=== PATIENT | male | born 1960 | race Caucasian/White ===

== ENCOUNTER 2020-12-21 08:49 | Outpatient (REF) | payer OTHER, SELFPAY ==
[2020-12-21 10:48] LABS: Alanine Aminotransferase 23 U/L (0-40); Albumin Level 4.2 g/dL (3.5-5.0); Alkaline Phosphatase 51 U/L (39-117); Anion Gap 12 (12-20); Aspartate Amino Transferase 18 U/L (5-37); Bilirubin Total 1.1 mg/dL (0.0-1.0); Blood Urea Nitrogen 15 mg/dL (9-16); Calcium 8.9 mg/dL (8.4-10.2); Carbon Dioxide 29 mmol/L (22-29); Chloride 102 mmol/L (96-108); Cholesterol 133 mg/dL; Estimated Glomerular Filt Rate > 60; Glucose Fasting 93 mg/dL (60-99); HDL Cholesterol 35 mg/dL; LDL Cholesterol Calculated 78 mg/dl; Potassium 4.6 mmol/L (3.3-5.1); Sodium 138 mmol/L (135-145); Total Protein 6.7 g/dL (6.5-8.0); Triglycerides 100 mg/dL
[2020-12-21 11:11] LABS: Prostate Specific Antigen Scr 1.95 ng/mL (<0.05-4.0); TSH reflex Free T4 0.97 uIU/mL (0.32-4.0)
== END 2020-12-21 08:50 | disposition home or self-care (01) ==
LOC: HO.10HDL 08:49
PROVIDERS: Visit Provider Nurse Practitioner Family
DX: Z00.00 Encounter for general adult medical examination without abnormal findings (principal); Z13.220 Encounter for screening for lipoid disorders; Z13.29 Encounter for screening for other suspected endocrine disorder; Z12.5 Encounter for screening for malignant neoplasm of prostate
CPT/HCPCS: 36415; 80053; 80061; 84153; 84443

== ENCOUNTER 2021-01-16 08:14 | Day surgery (SDC) | payer OTHER, SELFPAY ==
[2021-01-10 10:25] VITALS: BMI 30.2
--- NOTE | 2021-01-11 12:09 | P.CONAN_ITS ---
HPI - Anesthesia Eval Consult details Narrative: 60yo M for Colonoscopy PMFSH Active Problems Active Problems: All Active Problems (Updated 01/10/21 @ 10:26 by Pham Rivera) Physical exam (Acute) Screening PSA (prostate specific antigen) (Acute) Past Medical History Medical History (Updated 01/10/21 @ 10:26 by Pham Rivera) Asthma Elevated cholesterol Hx of degenerative disc disease Psoriasis Retinal hemorrhage of right eye Family History Family History Father Crohn disease Mother No problems noted. Surgical History Surgical History (Updated 01/10/21 @ 10:24 by Pham Rivera) H/O colonoscopy H/O left knee surgery History of esophagogastroduodenoscopy (EGD) History of tonsillectomy and adenoidectomy Social History Social History Advance Directives Information Provided: No Meds Allergies Allergy/AdvReac Type Severity Reaction Status Date / Time No Known Allergies Allergy Verified 12/18/20 13:30 Home Medications Medication Instructions Recorded Confirmed Last Taken Type alclometasone 0.05 % topical cream appl TOPICAL 12/18/20 12/18/20 Unknown History clobetasol 0.05 % topical foam 1 appl TOPICAL BID PRN 12/18/20 01/10/21 Unknown History ketoconazole 2 % shampoo 1 appl TOPICAL 2XW 12/18/20 01/10/21 Unknown History Exam Exam Date and Time: January 11, 2021 1209 Height,Weight and Vital Signs: Height 5 ft 7 in Weight 87.543 kg Assessment and Plan Assessment Anesthesia Assessment: Chart Reviewed
[2021-01-16 08:23] VITALS: BP 157/90; PULSE 85; RESP 16; TEMP 36.4; O2SAT 97
--- NOTE | 2021-01-16 08:28 | MHC.SHP ---
Pre-Procedural Eval Section A The patient is an INPATIENT: No Changes since office visit: No Cold of Flu in the past 2 weeks, No New Medical Problems, No Changes in Medication and No Patient answered all questions The History & Physical has been completed within 30 days and I have reviewed it.: Yes Section B Chief Complaint: screening Allergies: Allergies Allergy/AdvReac Type Severity Reaction Status Date / Time No Known Allergies Allergy Verified 12/18/20 13:30 Plan I have reviewed the history and physical and performed a pertinent physical examination on my patient. No changes have occurred unless specified.
[2021-01-16] MEDS: Lactated Ringers 1,000 ML 100 ML IVCONT (08:35)
[2021-01-16 09:06] VITALS: BP 105/70; PULSE 85; RESP 14; TEMP 36.2; O2SAT 96
--- NOTE | 2021-01-16 09:13 | P.BOP_ITS ---
Brief Operative Note Date of Service: 01/16/21 Pre-op diagnosis: screening Post-op diagnosis: same Procedure: colonoscopy Surgeon: Thanh Garcia Anesthesia: MAC Was an Station Attendant used for this Procedure?: No Estimated blood loss (mL): 0 Pathology: none sent Condition: stable Disposition: PACU
[2021-01-16 09:21] VITALS: BP 113/78; PULSE 74; RESP 17; TEMP 36.2; O2SAT 98
--- NOTE | 2021-01-16 19:09 | OP_ITS ---
SURGEON: Thanh Garcia MD INDICATIONS: Colon cancer screening. PREOPERATIVE DIAGNOSIS: POSTOPERATIVE DIAGNOSIS: PROCEDURE PERFORMED: Colonoscopy to the terminal ileum. ESTIMATED BLOOD LOSS: COMPLICATIONS: ANESTHESIA: ASSISTANTS: SPECIMENS: MEDICATIONS: Monitored anesthesia care. DESCRIPTION OF PROCEDURE: History and physical performed. The risks and benefits of the procedure were explained to the patient. Informed consent was obtained. The patient was placed in the left lateral decubitus position. A digital rectal exam was performed and was found to be normal. The Olympus pediatric video colonoscope was introduced into the rectum and advanced to the cecum without difficulty. The cecum was identified by transillumination, palpation, and identification of ileocecal valve. Examination was performed and the scope was removed. He tolerated the procedure well and was taken to recovery area in stable condition. FINDINGS: The terminal ileum was normal. The visualized colonic mucosa was normal. The quality of the prep was good. No polyps were identified. There was no sign of colitis. There was moderate sigmoid diverticulosis with scattered diverticula throughout the remainder of the colon. Retroflexed examination showed small internal hemorrhoids. IMPRESSION: Normal colonoscopy. RECOMMENDATIONS: 1. Follow up as needed. 2. Repeat colonoscopy is recommended in 10 years for average risk individuals. MD DYLAN Morales/IRLANDA / [phone]
== END 2021-01-16 09:47 | disposition home or self-care (01) ==
PROVIDERS: PCP Nurse Practitioner Family; Visit Provider Internal Medicine Gastroenterology
PROC: 0DJD8ZZ Inspection of Lower Intestinal Tract, Via Natural or Artificial Opening Endoscopic (ICD-10-PCS; CPT 45378; principal; 2021-01-16 08:30)
DX: Z12.11 Encounter for screening for malignant neoplasm of colon (principal); K57.30 Diverticulosis of large intestine without perforation or abscess without bleeding; K64.8 Other hemorrhoids; E78.5 Hyperlipidemia, unspecified; Z79.899 Other long term (current) drug therapy
CPT/HCPCS: 45378

== ENCOUNTER 2021-05-28 13:27 | Outpatient (REF) | payer OTHER, SELFPAY ==
--- NOTE | ~2021-05-28 | XR_ITS ---
EXAMINATION: XR FOOT, LEFT CLINICAL INFORMATION: M67.472 - Ganglion, left ankle and foot COMPARISON: None TECHNIQUE: AP, lateral, and oblique views of the left foot. FINDINGS: There is no acute or healing fracture, dislocation, destructive process. Bony mineralization appears normal. There is no erosive arthropathy. Minor smooth periosteal bone is seen distal shaft and neck second toe proximal phalanx of doubtful significance. There is bulky posterior and smaller plantar calcaneal spurs. No visible soft tissue mass on plain film. XR/XR foot LT min 3V IMPRESSION: 1. No visible fracture or destructive process. 2. No visible soft tissue mass on plain film. 3. Calcaneal spurs.
== END 2021-05-28 13:28 | disposition home or self-care (01) ==
LOC: HO.HMGCX 13:27
PROVIDERS: PCP Nurse Practitioner Family; Visit Provider Physician Assistant Medical
DX: M67.472 Ganglion, left ankle and foot (principal)
CPT/HCPCS: 73630

== ENCOUNTER 2022-01-30 08:46 | Outpatient (REF) | payer OTHER, SELFPAY ==
[2022-01-30 10:23] LABS: MANUAL DIFF FLAG NO
[2022-01-30 10:28] LABS: Basophils Percent Auto 0.5 % (0-2); Eosinophils Absolute Auto 0.1 X10*3/uL (0.0-0.4); Eosinophils Percent Auto 2.6 % (0-4); Hematocrit 44.1 % (42.0-52.0); Hemoglobin 14.6 g/dl (14.0-18.0); Lymphocytes Absolute Auto 1.9 X10*3/uL (1.2-4.9); Mean Corpuscular HGB Conc 33.1 g/dl (31.0-36.0); Mean Corpuscular Hemoglobin 29.4 pg (27.0-33.0); Mean Corpuscular Volume 88.9 fL (80.0-98.0); Mean Platelet Volume 9.1 fL (9.4-12.4); Monocytes Absolute Auto 0.6 X10*3/uL (0.1-1.2); Monocytes Percent Auto 11.4 % (2-11); Neutrophils Absolute Auto 2.8 x10*3/uL (2.0-8.3); Neutrophils Percent Auto 50.5 % (45-73); Platelet Count 321 X10*3/uL (160-400); Red Blood Count 4.96 X10*6/uL (4.60-5.80); Red Cell Distribution Width 12.4 % (11.0-16.0); White Blood Count 5.5 X10*3/uL (4.8-10.8)
[2022-01-30 10:31] LABS: Appearance Urine CLEAR; Color Urine YELLOW; Glucose Urine UA NEG (NEG); Leukocyte Esterase Urine NEG (NEG); Nitrite Urine NEG (NEG); PH 5.5 (5.0-8.0); Specific Gravity - Urine 1.025 (1.005-1.025); Urine Blood NEG (NEG); Urine Ketones NEG (NEG); Urine Protein NEG (NEG-TRACE)
[2022-01-30 10:56] LABS: Alanine Aminotransferase 25 U/L (0-40); Albumin Level 4.2 g/dL (3.5-5.0); Alkaline Phosphatase 52 U/L (39-117); Anion Gap 9 (12-20); Aspartate Amino Transferase 20 U/L (5-37); Bilirubin Total 0.7 mg/dL (0.0-1.0); Blood Urea Nitrogen 20 mg/dL (9-16); Calcium 9.2 mg/dL (8.4-10.2); Carbon Dioxide 26 mmol/L (22-29); Chloride 106 mmol/L (96-108); Cholesterol 131 mg/dL; Estimated Glomerular Filt Rate > 60; Glucose Fasting 94 mg/dL (60-99); HDL Cholesterol 34 mg/dL; LDL Cholesterol Calculated 81 mg/dl; Potassium 4.4 mmol/L (3.3-5.1); Sodium 137 mmol/L (135-145); Total Protein 6.8 g/dL (6.5-8.0); Triglycerides 84 mg/dL
[2022-01-30 11:11] LABS: Prostate Specific Antigen Scr 2.15 ng/mL (<0.05-4.0); TSH reflex Free T4 1.06 uIU/mL (0.32-4.0)
== END 2022-01-30 08:47 | disposition home or self-care (01) ==
LOC: HO.10HDL 08:46
PROVIDERS: Visit Provider Nurse Practitioner Family
DX: Z00.00 Encounter for general adult medical examination without abnormal findings (principal); Z13.220 Encounter for screening for lipoid disorders; Z13.29 Encounter for screening for other suspected endocrine disorder; Z12.5 Encounter for screening for malignant neoplasm of prostate
CPT/HCPCS: 36415; 80053; 80061; 81003; 84153; 84443; 85025

== ENCOUNTER 2023-01-29 07:41 | Outpatient (REF) | payer OTHER, SELFPAY ==
[2023-01-29 10:03] LABS: MANUAL DIFF FLAG NO
[2023-01-29 10:08] LABS: Basophils Percent Auto 0.5 % (0-2); Eosinophils Absolute Auto 0.1 X10*3/uL (0.0-0.4); Eosinophils Percent Auto 1.3 % (0-4); Hematocrit 44.7 % (42.0-52.0); Hemoglobin 15.1 g/dl (14.0-18.0); Imm Gran Abs Auto 0.01 X10*3/uL (0.00-0.03); Imm Gran Pct Auto 0.2 % (0.0-0.4); Lymphocytes Absolute Auto 2.1 X10*3/uL (1.2-4.9); Lymphocytes Percent Auto 34.7 % (20-40); Mean Corpuscular HGB Conc 33.8 g/dl (31.0-36.0); Mean Corpuscular Volume 88.9 fL (80.0-98.0); Mean Platelet Volume 9.2 fL (9.4-12.4); Monocytes Absolute Auto 0.7 X10*3/uL (0.1-1.2); Monocytes Percent Auto 11.7 % (2-11); Neutrophils Absolute Auto 3.1 x10*3/uL (2.0-8.3); Neutrophils Percent Auto 51.6 % (45-73); Platelet Count 307 X10*3/uL (160-400); Red Blood Count 5.03 X10*6/uL (4.60-5.80); Red Cell Distribution Width 12.5 % (11.0-16.0); White Blood Count 6.1 X10*3/uL (4.8-10.8)
[2023-01-29 10:10] LABS: Appearance Urine Clear; Color Urine Yellow; Glucose Urine UA Negative (Negative); Leukocyte Esterase Urine Negative (Negative); Nitrite Urine Negative (Negative); PH 6.5 (5.0-9.0); Specific Gravity - Urine 1.025 (1.005-1.025); Urine Blood Negative (Negative); Urine Ketones Negative (Negative); Urine Protein Negative (Neg-Trace)
[2023-01-29 10:36] LABS: Alanine Aminotransferase 26 U/L (0-40); Albumin Level 4.1 g/dL (3.5-5.0); Alkaline Phosphatase 53 U/L (39-117); Anion Gap 11 (12-20); Aspartate Amino Transferase 24 U/L (5-37); Bilirubin Total 1.3 mg/dL (0.0-1.0); Blood Urea Nitrogen 16 mg/dL (9-16); Calcium 9.2 mg/dL (8.4-10.2); Carbon Dioxide 27 mmol/L (22-29); Chloride 105 mmol/L (96-108); Cholesterol 134 mg/dL; Estimated Glomerular Filt Rate > 60; Glucose Fasting 94 mg/dL (60-99); HDL Cholesterol 35 mg/dL; LDL Cholesterol Calculated 71 mg/dl; Potassium 3.9 mmol/L (3.3-5.1); Sodium 139 mmol/L (135-145); Total Protein 7.1 g/dL (6.5-8.0); Triglycerides 143 mg/dL
[2023-01-29 10:45] LABS: Prostate Specific Antigen Scr 2.33 ng/mL (<0.05-4.0); TSH reflex Free T4 1.73 uIU/mL (0.32-4.0)
== END 2023-01-29 07:42 | disposition home or self-care (01) ==
LOC: HO.10HDL 07:41
PROVIDERS: Visit Provider Nurse Practitioner Family
DX: Z00.00 Encounter for general adult medical examination without abnormal findings (principal); Z20.2 Contact with and (suspected) exposure to infections with a predominantly sexual mode of transmission; Z12.5 Encounter for screening for malignant neoplasm of prostate; Z13.220 Encounter for screening for lipoid disorders; Z13.29 Encounter for screening for other suspected endocrine disorder
CPT/HCPCS: 36415; 80053; 80061; 81003; 84153; 84443; 85025

== ENCOUNTER → 2023-02-17 08:51 | Outpatient (BNVA) | payer OTHER, SELFPAY | PROVIDERS: Visit Provider Urology | DX: N40.1 Benign prostatic hyperplasia with lower urinary tract symptoms (principal); N13.8 Other obstructive and reflux uropathy; N39.43 Post-void dribbling | CPT/HCPCS: 51798 ==

== ENCOUNTER 2023-02-25 09:56 | Outpatient (REF) | payer OTHER, SELFPAY ==
--- NOTE | ~2023-02-25 | US_ITS ---
EXAMINATION: US RETROPERITONEAL COMPLETE (RENAL) CLINICAL INFORMATION: Postvoid dribbling. Please measure prostate. COMPARISON: None available. TECHNIQUE: Real-time imaging of the kidneys and bladder. FINDINGS: RIGHT KIDNEY: 10.9 x 5.4 x 5.3 cm (SAG x AP x TRV). The kidney is normal in size, contour, and echogenicity. Renal cortical thickness is normal. No calculi or focal parenchymal lesions. No hydronephrosis. LEFT KIDNEY: 10.3 x 5.1 x 5.3 cm (SAG x AP x TRV). The kidney is normal in size, contour, and echogenicity. Renal cortical thickness is normal. No focal parenchymal lesions or hydronephrosis. 5 mm nonobstructing lower pole renal stone. BLADDER: Well distended and normal. Bilateral ureteral jets are demonstrated. Prevoid bladder volume is 170 mL. Postvoid bladder volume is 2.76 mL. The prostate volume is 21.3 mL. US/US retroperitoneal comp IMPRESSION: 1. A 5 mm nonobstructing left lower pole renal stone. No hydronephrosis. 2. Prostate volume is 21.3 mL which is within normal limits.
== END 2023-02-25 09:57 | disposition home or self-care (01) ==
LOC: HO.HMGCX 09:56
PROVIDERS: PCP Nurse Practitioner Family; Visit Provider Urology
DX: N40.1 Benign prostatic hyperplasia with lower urinary tract symptoms (principal); N39.43 Post-void dribbling
CPT/HCPCS: 76770

== ENCOUNTER 2023-05-29 10:50 | Outpatient (AMB) | payer OTHER, SELFPAY ==
--- NOTE | 2023-05-29 10:53 | MHC.OFFWIV ---
Intake Vital Signs 05/29/23 10:55 Height 5 ft 7 in Weight 197 lb BMI 30.9 BP 132/76 Blood Pressure Location Rt brachial Position Sitting Pulse 96 Pulse Source Pulse Oximeter Temp 95.8 F L Temp Source Temporal Artery Scan Pulse Oximetry (%) 97 Oxygen Delivery Method Room Air Intake Visit Reasons: EP ?Bronchitis Intake Note: Pt is here c/o possible bronchitis. Pt states he has had a bad cough, back pain and light headedness for the past month. Pt states he has used his inhaler more than normal. Pt states his granddaughter had bronchitis. Patient Tobacco Use Status: Never used Tobacco Allergies No Known Allergies Allergy (Verified 05/29/23 10:55) HPI HPI Comments History of Present Illness Details 63-year-old male history of bronchitis precludes for concern of bronchitis. Patient was sick about a month ago with viral-like illness. Was not seen or evaluated. Within the been experiencing cough and chest congestion. Cough is nonproductive denies fever chills. [facility] Medical History Asthma Elevated cholesterol Hx of degenerative disc disease Psoriasis Retinal hemorrhage of right eye Surgical History H/O colonoscopy H/O left knee surgery History of esophagogastroduodenoscopy (EGD) History of tonsillectomy and adenoidectomy Family History Father Crohn disease Mother No problems noted. Social History Housing: House Patient Tobacco Use Status: Never used Tobacco e-Cigarette/Vaping Use: Never Used service: No Current occupational status: retired Cognitive needs: No Hearing needs: No Vision needs: Yes Review of Systems Const All systems reviewed & are unremarkable except as noted in HPI and below Resp Reports cough Physical Exam Vital Signs: Last Vital Signs Temp 95.8 F L 05/29/23 10:55 Pulse 96 05/29/23 10:55 BP 132/76 05/29/23 10:55 Pulse Ox 97 05/29/23 10:55 Oxygen Delivery Method Room Air 05/29/23 10:55 BMI result Body Mass Index 30.9 Const General: healthy appearing, comfortable, no acute distress and alert Orientation/consciousness: patient oriented x3 Limitations: no limitations HEENT Head: Yes normal to inspection Ears: hearing grossly normal bilaterally Resp Other: Rhonchi heard in the upper right lobe Effort & Inspection: normal respiratory effort and able to speak in complete sentences Cardio Rate: regular rate Skin General skin exam: no rashes or lesions noted Neuro General: patient oriented x3 Extrem General: Yes normal to inspection Assessment & Plan Assessment & Plan (1) Cough: Code(s): R05.9 - Cough, unspecified Plan VSS. On exam patients presents A& O in no acute distress. Exam notable for rhonchi in the upper R lobe. Will order CXR. Bronchitis vs PNA. CXR neg likely bronchitis Discharge instructions, follow up and treatment are discussed with patient in my usual fashion. Alternatives in treatment are also discussed. The patient will return for worsening symptoms or as needed. Advised that any labs/imaging ordered will be followed up on and contact made if further treatment needed. Counseled that patient's condition may require further evaluation and/or treatment. Symptoms of concern for worsening disorder discussed in detail in my customary manner. Patient does verbalize understanding of the plan, there are no apparent barriers to communication. The patient is given the opportunity to ask questions and have them answered to his/her satisfaction Orders: Orders XR chest 2V Today R05.9 - Cough, unspecified Medications: New benzonatate 100 mg PO BID-TID PRN 10 caps 0RF cough prednisone 40 mg (2 x 20 mg) PO DAILY 10 tabs 0RF 5 days Coding Level of Care Code Est Pt Level 4 (13856) Diagnoses Cough R05.9
[2023-05-29 10:55] VITALS: BP 132/76; PULSE 96; TEMP 35.4; O2SAT 97; BMI 30.9
== END 2023-05-29 11:29 | disposition home or self-care (01) ==
PROVIDERS: PCP Nurse Practitioner Family; Visit Provider Physician Assistant
DX: R05.9 Cough, unspecified (principal)
CPT/HCPCS: 99214

== ENCOUNTER 2023-05-29 11:15 | Outpatient (REF) | payer OTHER, SELFPAY ==
--- NOTE | ~2023-05-29 | XR_ITS ---
EXAMINATION: XR CHEST CLINICAL INFORMATION: Cough COMPARISON: Chest x-ray on 12/13/2016 TECHNIQUE: 2 views of the chest were obtained. FINDINGS: vascularity. LUNGS: Lungs are clear. No pneumothorax is seen. BONES: Bony skeleton is intact. XR/XR chest 2V IMPRESSION: Unchanged Normal chest x-ray. Please note that chest x-ray has limited sensitivity for groundglass infiltrates.
== END 2023-05-29 11:16 | disposition home or self-care (01) ==
LOC: HO.HMGCX 11:15
PROVIDERS: PCP Nurse Practitioner Family; Visit Provider Physician Assistant
DX: R05.9 Cough, unspecified (principal)
CPT/HCPCS: 71046

== ENCOUNTER 2023-07-02 15:20 | Outpatient (AMB) | payer OTHER, SELFPAY ==
--- NOTE | 2023-07-02 15:25 | A.OFFVIS_ITS ---
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 07/02/2023-- LV 02/17/23-- He was prescribed alfuzosin. Wan is a 63-year-old male who is being followed for LUTS of dribbling and BPH. He states that he did not take alfusozin as he developed jaw pain and felt drowsy for couple of days. He uses generic Viagra 100 mg PRN. He has had renal US done which was reviewed with patient today noting a 5 mm stone on the left kidney. He states he would prefer not to take BPH medications at this time, as he feels he is emptying his bladder adequately. I have reviewed the US results from 02/25/2023 revealed. 5 mm in the lower pole of the left kidney. Review of chart: PSA results reviewed? 12/21/20-- 1.95, 01/30/22-- 2.15 01/29/23?2.33 07/02/23--Plan:CAT scan protocol was ord ered. AMARILIS in december 2023. [facility] Medical History Psoriasis Hx of degenerative disc disease Elevated cholesterol Asthma Retinal hemorrhage of right eye Surgical History History of tonsillectomy and adenoidectomy History of esophagogastroduodenoscopy (EGD) H/O colonoscopy H/O left knee surgery Family History Father Crohn disease Mother No problems noted. Social History Housing: House Patient Tobacco Use Status: Never used Tobacco e-Cigarette/Vaping Use: Never Used service: No Current occupational status: retired Cognitive needs: No Hearing needs: No Vision needs: Yes Review of Systems Const All systems reviewed & are unremarkable except as noted in HPI and below Reports no additional complaints Eyes Reports no additional complaints ENT Denies neck pain Card Denies leg edema Resp Denies cough GI Denies constipation Musc Reports no additional complaints and Denies neck pain Skin/Breast Denies rash and Denies unusual bruising Neuro Reports no additional complaints Psych Reports no additional complaints Endo Reports no additional complaints Neo/Lymph Reports no additional complaints Aller/Immun Reports no additional complaints Results AMB Urinalysis, Automated UA Leukoctes 0 Hayley/uL Last Edit by Shirley Georges Ritesh on 07/02/23 16:12 UA Nitrite Negative Last Edit by Shirley Georges [facility] on 07/02/23 16:12 UA Urobilinogen 0.2 mg/dL Last Edit by Shirley Georges [facility] on 07/02/23 16:1 2 UA Protein 0 mg/dL Last Edit by Shirley Georges [facility] on 07/02/23 16:12 UA pH 5.5 Last Edit by Shirley Georges [facility] on 07/02/23 16:12 UA Blood 0 Gen/uL Last Edit by Shirley Georges [facility] on 07/02/23 16:12 UA Specific [place] 1.030 Last Edit by Shirley Georges [facility] on 07/02/23 16: 12 UA Ketone Negative Last Edit by Shirley Georges Ritesh on 07/02/23 16:12 UA Bilirubin 0 mg/dL Last Edit by Shirley Georges [facility] on 07/02/23 16:12 UA Glucose 0 mg/dL Last Edit by Shirley Georges [facility] on 07/02/23 16:12 Results Reviewed Results Reviewed: Laboratory Last Values Urine pH (Auto) 5.5 07/02/23 16:07 Specific [place] (Auto) 1.030 07/02/23 16:07 Urine Protein (Auto) 0 mg/dL 07/02/23 16:07 Glucose (UA)(Auto) 0 mg/dL 07/02/23 16:07 Urine Ketones (Auto) Negative 07/02/23 16:07 Urine Blood (Auto) 0 Gen/uL 07/02/23 16:07 Urine Nitrite (Auto) Negative 07/02/23 16:07 Urine Bilirubin (Auto) 0 mg/dL 07/02/23 16:07 Urine Urobilinogen (Auto) 0.2 mg/dL 07/02/23 16:07 Leukocyte Esterase (Auto) 0 Hayley/uL 07/02/23 16:07 Date of Service: 02/25/23 EXAMINATION: US RETROPERITONEAL COMPLETE (RENAL) CLINICAL INFORMATION: Postvoid dribbling. Please measure prostate. COMPARISON: None available. FINDINGS: RIGHT KIDNEY: 10.9 x 5.4 x 5.3 cm (SAG x AP x TRV). The kidney is normal in size, contour, and echogenicity. Renal cortical thickness is normal. No calculi or focal parenchymal lesions. No hydronephrosis. LEFT KIDNEY: 10.3 x 5.1 x 5.3 cm (SAG x AP x TRV). The kidney is normal in size, contour, and echogenicity. Renal cortical thickness is normal. No focal parenchymal lesions or hydronephrosis. 5 mm nonobstructing lower pole renal stone. Assessment & Plan Assessment & Plan (1) BPH loc w urin obs/LUTS: Code(s): N40.1 - Benign prostatic hyperplasia with lower urinary tract symptoms (2) Post-void dribbling: Code(s): N39.43 - Post-void dribbling (3) Kidney stone: Code(s): N20.0 - Calculus of kidney (4) Erectile dysfunction: Code(s): N52.9 - Male erectile dysfunction, unspecified Plan CAT scan protocol was ordered. FU in december 2023. Orders: Orders AMB Urinalysis Automated 07/02/23 Z13.9 - Encounter for screening, unspecified Patient Instructions: The patient had an opportunity to ask questions regarding treatment plan. All questions were answered. Imaging, Laboratory studies and physical exam results were discussed and reviewed in detail. No major barriers to understanding were identified. The patient expressed understanding and agreement with the above treatment plan. The patient is aware they should contact our office by phone for worsening of their current condition or the appearance of new symptoms. Compliance is encouraged with any medications and followup testing that is ordered. It is a privilege to be allowed the opportunity to participate in the urologic care of your patient. If you have any questions or concerns regarding treatment for the above conditions please do not hesitate to contact me. The office telephone contact is [phone]. This note is constructed in part using voice recognition software. While every effort has been made to ensure accuracy shader and toner errors may have been included. Yours sincerely, Zulema Oliva MD Coding Level of Care Code Est Pt Level 4 (11602) Diagnoses BPH loc w urin obs/LUTS N40.1 Post-void dribbling N39.43 Kidney stone N20.0 Erectile dysfunction N52.9
== END 2023-07-02 16:15 | disposition home or self-care (01) ==
PROVIDERS: PCP Nurse Practitioner Family; Visit Provider Urology
DX: N40.1 Benign prostatic hyperplasia with lower urinary tract symptoms (principal); N39.43 Post-void dribbling; N20.0 Calculus of kidney; N52.9 Male erectile dysfunction, unspecified
CPT/HCPCS: 99214

== ENCOUNTER → 2023-07-02 15:20 | Outpatient (BNVA) | payer OTHER, SELFPAY | PROVIDERS: PCP Nurse Practitioner Family; Visit Provider Urology | DX: N40.1 Benign prostatic hyperplasia with lower urinary tract symptoms (principal); N13.8 Other obstructive and reflux uropathy; N39.43 Post-void dribbling; N20.0 Calculus of kidney | CPT/HCPCS: 81003 ==

== ENCOUNTER 2024-01-15 07:26 | Outpatient (AMB) | payer OTHER, SELFPAY ==
[2024-01-15 07:36] VITALS: BP 140/80; PULSE 58; O2SAT 98; BMI 30.2
--- NOTE | 2024-01-15 07:36 | A.OFFPC_ITS ---
Vital Signs 01/15/24 07:36 01/15/24 08:02 Height 5 ft 7 in Weight 193 lb BMI 30.2 BP 140/80 H 138/80 Blood Pressure Location Rt brachial Rt brachial Position Sitting Sitting Pulse 58 Pulse Source Pulse Oximeter Pulse Oximetry (%) 98 Oxygen Delivery Method Room Air Intake Visit Reasons: Annual PE Intake Note: Pt is here today for his PE Allergies No Known Allergies Allergy (Verified 01/15/24 07:42) Medication List - Last Reconciled 01/15/24 by GIOVANNA Cornelius albuterol sulfate 90 mcg/actuation (Ventolin HFA) 1 inh inhalation QID PRN 30 days alclometasone 0.05% appl topical atorvastatin 10 mg PO BEDTIME ibuprofen 600 mg PO TID PRN ketoconazole 2% 1 appl topical 2XW sildenafil 100 mg PO DAILY PRN 30 days Tobacco use date assessed: 01/15/24 Dental Screening Dental Screen Date: 01/15/24 Did you have a dental visit in the last 12 months?: Yes Did you have a dental problem in the last 6 months where you did not have access to dental care?: No Was dental information given to patient?: Patient has dentist HPI Annual PE HPI Details Pt is here for a PE. Will order labs. Colon screen is up to date. Due for PSA in the near future, will order. Denies dribbling with urination, weak stream, and frequent nocturia. Pt is following up with urology and dermatology. Pt has had bronchitis 3 times in the last year. He denies any current symptoms. [facility] Medical History (Updated 01/15/24 @ 07:49 by GIOVANNA Cornelius) Family history of Crohn's disease Psoriasis Hx of degenerative disc disease Elevated cholesterol Asthma Retinal hemorrhage of right eye Surgical History History of tonsillectomy and adenoidectomy History of esophagogastroduodenoscopy (EGD) H/O colonoscopy H/O left knee surgery Family History Father Crohn disease Mother No problems noted. Social History Housing: House Patient Tobacco Use Status: Never used Tobacco e-Cigarette/Vaping Use: Never Used service: No Current occupational status: retired Cognitive needs: No Hearing needs: No Vision needs: Yes Questionnaire PHQ-9 Over the last 2 weeks, how often have you been bothered by any of the following problems? 1. Little interest or pleasure in doing things: not at all 2. Feeling down, depressed, or hopeless: not at all 3. Trouble falling or staying asleep, or sleeping too much: not at all 4. Feeling tired or having little energy: not at all 5. Poor appetite or overeating: not at all 6. Feeling bad about yourself - or that you are a failure or have let yourself or your family down: not at all 7. Trouble concentrating on things, such as reading the newspaper or watching television: not at all 8. Moving or speaking so slowly that other people could have noticed. Or the opposite - being so fidgety or restless that you have been moving around a lot more than usual: not at all 9. Thoughts that you would be better off or of hurting yourself in some way: not at all Total score: 0 Depression Screening Interpretation: Negative Depression Screening Done: Yes 54682 - PHQ-9 Billing: Yes Source: Developed by Drs. Jaden Beverly, Latha Fisher, Yuo Babin and colleagues, with an educational ganga from [employer]. Thrive Questionnaire Date Thrive assessed: 01/15/24 I am a: Patient What is your living situation today?: I have a steady place to live Within the past 12 months, did the food you bought not last and you didn't have the money to get more?: Never true Within the past 12 months, did you worry whether your food would run out before you got money to buy more?: Never true Do you have trouble paying for medicines?: No Do you have trouble getting transportation to medical appointments?: No Do you have trouble paying your heating and electricity bill?: No Do you have trouble taking care of your child, family member or friend?: No Do you have trouble with day-to-day activities such as bathing, preparing meals, shopping, managing finances, etc.?: No Are you currently unemployed and looking for a job?: No Are you interested in more education?: No THRIVE Score: 0 AUDIT C Alcohol Use Questionnaire (AUDIT-C) 1. How often do you have a drink containing alcohol?: Monthly or less 2. How many drinks containing alcohol do you have on a typical day when you are drinking?: 1 or 2 3. How often do you have six or more drinks on one occasion?: Never Total Score: 1 JESSIE-7 AMB Questionnaire JESSIE-7 Date JESSIE - 7 assessed: 01/15/24 Feeling nervous, anxious, or on edge: 0 = Not at all Not being able to stop or control worryin = Not at all Worrying too much about different things: 0 = Not at all Trouble relaxin = Not at all Being so restless that it is hard to sit still: 0 = Not at all Becoming easily annoyed or irritable: 0 = Not at all Feeling afraid as if something awful might happen: 0 = Not at all Total JESSIE-7 score (0-4 normal; 5-9 mild; 10-14 moderate; 15-21 severe): 0 Source: Developed by Drs. Jaden Beverly, Latha Fisher, You Babin and colleagues, with an educational ganga from [employer]. JESSIE-7 Assessment Billing JESSIE-7 Assessment Tool: JESSIE-7 Assessment 47987 Review of Systems Const Denies chills and Denies fever(s) Eyes Denies blurry vision ENT Denies vertigo, Denies dizziness and Denies sore throat Card Denies chest pain at rest, Denies chest pain with activity, Denies diaphoresis, Denies dyspnea and Denies dyspnea on exertion Resp Denies cough, Denies dyspnea, Denies dyspnea on exertion and Denies wheezing GI Denies abdominal pain, Denies melena, Denies hematochezia, Denies constipation, Denies diarrhea and Denies loose stools Denies hematuria Musc Denies numbness and Denies tingling Skin/Breast Denies lesions Neuro Denies vertigo, Denies dizziness, Denies numbness and Denies tingling Psych Denies anxiety, Denies depression, Denies homicidal ideation, Denies suicidal ideation and Denies other (substance abuse) Aller/Immun Denies wheezing Physical exam (Primary Care) Vital Signs: Last Vital Signs Pulse 58 01/15/24 07:36 BP 140/80 H 01/15/24 07:36 Pulse Ox 98 01/15/24 07:36 Oxygen Delivery Method Room Air 01/15/24 07:36 BMI result Body Mass Index 30.2 Tobacco/Smoking Status: Tobacco use Status Tobacco use date assessed 01/15/24 01/15/24 07:41 Patient Tobacco Use Status Never used Tobacco 01/15/24 07:36 e-Cigarette/Vaping Use Never Used 01/15/24 07:36 PHQ-9: PHQ-9 Score PHQ-9: Total score 0 01/15/24 07:43 Depression Screening Interpretation: Negative Thrive Assessment: Date of Thrive Assessment Date Thrive assessed 01/15/24 01/15/24 07:43 Const General: cooperative Nutritional Appearance: well nourished Orientation/consciousness: patient oriented x3 HENMT Head: Yes normal to inspection, Yes normocephalic and Yes atraumatic Ears: TM's normal bilaterally Eyes General: appearance normal, both eyes and all related structures Alignment and Position: alignment normal and position normal Neck Neck: Yes normal visual inspection and Yes no lymphadenopathy Thyroid: Thyroid normal Resp Effort & Inspection: normal respiratory effort Auscultation: clear to auscultation bilaterally Cardio Rate: regular rate Rhythm: regular rhythm Heart sounds: S1 normal heart sound present, S2 normal heart sound present and no murmurs GI Palpation (GI): Soft to palpation and nontender Auscultation: normal bowel sounds Male General Exam: Yes normal external exam Penis: normal penis Scrotum: scrotum normal, testes descended bilaterally and no inguinal hernias Testes: no testicular mass Skin Rashes: no rashes Neuro General: patient oriented x3, moves all extremities, no focal motor deficits and deep tendon reflexes 2+ bilaterally Romberg Test: Negative Psych Appearance: grossly normal Mental Status: mental status grossly normal Speech and movement: Normal speech and movement present Affect: normal affect Attitude: cooperative Thought process: Normal thought process present Thought content: Normal thought content present Insight: Good insight present (Psych) Judgement: Good judgement present (Psych) Assessment and Plan Assessment & Plan (1) Screening PSA (prostate specific antigen): Code(s): Z12.5 - Encounter for screening for malignant neoplasm of prostate Plan: PSA ordered (2) Encounter for routine adult physical exam with abnormal findings: Code(s): Z00.01 - Encounter for general adult medical examination with abnormal findings Plan: Labs ordered Plan The patient agreed to the use of a medical physiologist for this encounter. Scribed for GIOVANNA Larose by Joann Sellers medical physiologist, on 01/15/2024 at 07:40 EST. Orders: Orders Complete Blood Count Auto Diff Today Z00.00 - Encounter for general adult medical examination without abnormal findings UA CC w/rflx Micro + Cult Today Z00.00 - Encounter for general adult medical examination without abnormal findings Comprehensive [place]. Panel Fast Today Z00.00 - Encounter for general adult medical examination without abnormal findings TSH reflex Free T4 Today Z00.00 - Encounter for general adult medical examination without abnormal findings Lipid Panel Today Z00.00 - Encounter for general adult medical examination without abnormal findings Prostate Specific Antigen Scr Today Z12.5 - Encounter for screening for malignant neoplasm of prostate Coding Level of Care Code Est Pt Prev Care 40-64y(35101) Diagnoses Screening PSA (prostate specific antigen) Z12.5 Encounter for routine adult physical exam with abnormal findings Z00.01 Additional Codes JESSIE-7 Assessment Billing - JESSIE-7 Assessment Tool: JESSIE-7 Assessment [id number] ([id number])
[2024-01-15 08:02] VITALS: BP 138/80
== END 2024-01-15 08:08 | disposition home or self-care (01) ==
PROVIDERS: Visit Provider Nurse Practitioner Family
DX: Z00.00 Encounter for general adult medical examination without abnormal findings (principal); Z12.5 Encounter for screening for malignant neoplasm of prostate
CPT/HCPCS: 99396

== ENCOUNTER 2024-01-15 08:05 | Outpatient (REF) | payer OTHER, SELFPAY ==
[2024-01-15 10:24] LABS: MANUAL DIFF FLAG NO
[2024-01-15 10:34] LABS: Appearance Urine Clear; Color Urine Yellow; Glucose Urine UA Negative (Negative); Leukocyte Esterase Urine Negative (Negative); Nitrite Urine Negative (Negative); PH 5.5 (5.0-9.0); Urine Blood Negative (Negative); Urine Ketones Negative (Negative); Urine Protein Negative (Neg-Trace)
[2024-01-15 10:39] LABS: Basophils Percent Auto 0.7 % (0-2); Eosinophils Absolute Auto 0.3 X10*3/uL (0.0-0.4); Eosinophils Percent Auto 5.5 % (0-4); Hematocrit 44.5 % (42.0-52.0); Hemoglobin 14.6 g/dl (14.0-18.0); Imm Gran Abs Auto 0.01 X10*3/uL (0.00-0.03); Imm Gran Pct Auto 0.2 % (0.0-0.4); Lymphocytes Absolute Auto 1.6 X10*3/uL (1.2-4.9); Lymphocytes Percent Auto 28.9 % (20-40); Mean Corpuscular HGB Conc 32.8 g/dl (31.0-36.0); Mean Corpuscular Volume 91.4 fL (80.0-98.0); Mean Platelet Volume 9.1 fL (9.4-12.4); Monocytes Absolute Auto 0.7 X10*3/uL (0.1-1.2); Monocytes Percent Auto 12.5 % (2-11); Neutrophils Absolute Auto 2.9 x10*3/uL (2.0-8.3); Neutrophils Percent Auto 52.2 % (45-73); Platelet Count 330 X10*3/uL (160-400); Red Blood Count 4.87 X10*6/uL (4.60-5.80); Red Cell Distribution Width 12.8 % (11.0-16.0); White Blood Count 5.6 X10*3/uL (4.8-10.8)
[2024-01-15 11:04] LABS: Alanine Aminotransferase 27 U/L (0-40); Albumin Level 4.1 g/dL (3.5-5.0); Alkaline Phosphatase 54 U/L (39-117); Anion Gap 12 (12-20); Aspartate Amino Transferase 21 U/L (5-37); Bilirubin Total 0.4 mg/dL (0.0-1.0); Blood Urea Nitrogen 15 mg/dL (9-16); Calcium 8.8 mg/dL (8.4-10.2); Carbon Dioxide 27 mmol/L (22-29); Chloride 107 mmol/L (96-108); Cholesterol 136 mg/dL (<200); Estimated Glomerular Filt Rate > 60; Glucose Fasting 97 mg/dL (60-99); HDL Cholesterol 37 mg/dL (>40); LDL Cholesterol Calculated 73 mg/dL (<100); Potassium 4.6 mmol/L (3.3-5.1); Sodium 141 mmol/L (135-145); Triglycerides 133 mg/dL (<150)
[2024-01-15 11:08] LABS: TSH reflex Free T4 1.05 uIU/mL (0.32-4.0)
[2024-01-15 11:12] LABS: Prostate Specific Antigen Scr 4.55 ng/mL (<0.05-4.0)
== END 2024-01-15 08:06 | disposition home or self-care (01) ==
LOC: HO.HMGCLDS 08:05
PROVIDERS: PCP Nurse Practitioner Family; Visit Provider Nurse Practitioner Family
DX: Z00.00 Encounter for general adult medical examination without abnormal findings (principal); Z12.5 Encounter for screening for malignant neoplasm of prostate
CPT/HCPCS: 36415; 80053; 80061; 81003; 84153; 84443; 85025

== ENCOUNTER 2024-03-01 08:17 | Outpatient (AMB) | payer BC, SELFPAY ==
--- NOTE | 2024-03-01 08:25 | MHC.OFFVIS ---
Intake Visit Reasons: 6m/PSA Intake Note: Patient is Present for PVR/PSA Urology Med: Sildenafil(PCP Prescribes) Antibiotic Allergy: None Blood Thinner: None Diabetic: No No diabetic Medications Todays PVR: 0 Allergies No Known Allergies Allergy (Verified 03/01/24 08:27) Medication List - Last Reconciled 03/01/24 by Zulema Oliva MD albuterol sulfate 90 mcg/actuation (Ventolin HFA) 1 inh inhalation QID PRN 30 days alclometasone 0.05% appl topical atorvastatin 10 mg PO BEDTIME ibuprofen 600 mg PO TID PRN ketoconazole 2% 1 appl topical 2XW sildenafil 100 mg PO DAILY PRN 30 days HPI Comments Details: 03/01/24--Wan is a 64-year-old male who presents today to the office for a follow-up. He is being followed due to BPH and changes in urinary stream he has currently not on alpha-berna. He had PSA done which came back 4.55. The patient also was noted to have a 5 mm kidney stone on prior renal ultrasound imaging. I have discussed that elevated PSA may indicate changes in the prostate including benign enlargement, cancer and an inflammatory condition. I have discussed doing a biopsy has risks and that management in early detection of prostate cancer may include active surveillance. Will get a CT abdomen pelvis without IV contrast to follow-up on nephrolithiasis. Review of chart: 07/02/2023-- LV 02/17/23-- He was prescribed alfuzosin. Wan is a 63-year-old male who is being followed for LUTS of dribbling and BPH. He states that he did not take alfusozin as he developed jaw pain and felt drowsy for couple of days. He uses generic Viagra 100 mg PRN. He has had renal US done which was reviewed with patient today noting a 5 mm stone on the left kidney. He states he would prefer not to take BPH medications at this time, as he feels he is emptying his bladder adequately. I have reviewed the US results from 02/25/2023 revealed. 5 mm in the lower pole of the left kidney. PSA results reviewed? 12/21/20-- 1.95, 01/30/22-- 2.15 01/29/23?2.33 [facility] Medical History Family history of Crohn's disease Psoriasis Hx of degenerative disc disease Elevated cholesterol Asthma Retinal hemorrhage of right eye Surgical History History of tonsillectomy and adenoidectomy History of esophagogastroduodenoscopy (EGD) H/O colonoscopy H/O left knee surgery Family History Father Crohn disease Mother No problems noted. Social History Housing: House Patient Tobacco Use Status: Never used Tobacco e-Cigarette/Vaping Use: Never Used service: No Current occupational status: retired Cognitive needs: No Hearing needs: No Vision needs: Yes Review of Systems Const All systems reviewed & are unremarkable except as noted in HPI and below Reports no additional complaints Eyes Reports no additional complaints ENT Reports no additional complaints Card Reports no additional complaints Resp Reports no additional complaints GI Reports no additional complaints Reports as per HPI Musc Reports no additional complaints Skin/Breast Reports system reviewed and no additional complaints, except as documented Neuro Reports no additional complaints Psych Reports no additional complaints Endo Reports no additional complaints Neo/Lymph Reports no additional complaints Aller/Immun Reports no additional complaints Office Procedures Post Void Residual Post Residual Void Post Void Residual (PVR): [id number] Void Residual by ultrasound Results AMB Urinalysis, Automated UA Leukoctes 0 Hayley/uL Last Edit by JACOBO Reddy on 03/01/24 08:43 UA Nitrite Negative Last Edit by JACOBO Reddy on 03/01/24 08:43 UA Urobilinogen 0.2 mg/dL Last Edit by JACOBO Reddy on 03/01/24 08:43 UA Protein 0 mg/dL Last Edit by JACOBO Reddy on 03/01/24 08:43 UA pH 6.0 Last Edit by JACOBO Reddy on 03/01/24 08:43 UA Blood 0 Gen/uL Last Edit by JACOBO Reddy on 03/01/24 08:43 UA Specific [place] 1.015 Last Edit by JACOBO Reddy on 03/01/24 08:43 UA Ketone Negative Last Edit by JACOBO Reddy on 03/01/24 08:43 UA Bilirubin 0 mg/dL Last Edit by JACOBO Reddy on 03/01/24 08:43 UA Glucose 0 mg/dL Last Edit by JACOBO Reddy on 03/01/24 08:43 Results Reviewed Results Reviewed: Laboratory Last Values Urine pH (Auto) 6.0 03/01/24 08:30 Specific [place] (Auto) 1.015 03/01/24 08:30 Urine Protein (Auto) 0 mg/dL 03/01/24 08:30 Glucose (UA)(Auto) 0 mg/dL 03/01/24 08:30 Urine Ketones (Auto) Negative 03/01/24 08:30 Urine Blood (Auto) 0 Gen/uL 03/01/24 08:30 Urine Nitrite (Auto) Negative 03/01/24 08:30 Urine Bilirubin (Auto) 0 mg/dL 03/01/24 08:30 Urine Urobilinogen (Auto) 0.2 mg/dL 03/01/24 08:30 Leukocyte Esterase (Auto) 0 Hayley/uL 03/01/24 08:30 Date of Service: 02/25/23 EXAMINATION: US RETROPERITONEAL COMPLETE (RENAL) CLINICAL INFORMATION: Postvoid dribbling. Please measure prostate. COMPARISON: None available. FINDINGS: RIGHT KIDNEY: 10.9 x 5.4 x 5.3 cm (SAG x AP x TRV). The kidney is normal in size, contour, and echogenicity. Renal cortical thickness is normal. No calculi or focal parenchymal lesions. No hydronephrosis. LEFT KIDNEY: 10.3 x 5.1 x 5.3 cm (SAG x AP x TRV). The kidney is normal in size, contour, and echogenicity. Renal cortical thickness is normal. No focal parenchymal lesions or hydronephrosis. 5 mm nonobstructing lower pole renal stone. Assessment & Plan Assessment & Plan (1) BPH loc w urin obs/LUTS: Code(s): N40.1 - Benign prostatic hyperplasia with lower urinary tract symptoms Category: Medical (2) Post-void dribbling: Code(s): N39.43 - Post-void dribbling Category: Medical (3) Kidney stone: Code(s): N20.0 - Calculus of kidney Category: Medical (4) Erectile dysfunction: Code(s): N52.9 - Male erectile dysfunction, unspecified Category: Medical (5) Elevated PSA: Code(s): R97.20 - Elevated prostate specific antigen [PSA] Category: Medical Plan CAT scan stone protocol was ordered. Repeat PSA Orders: Orders AMB Post Void Residual by ultrasound Today N40.1 - Benign prostatic hyperplasia with lower urinary tract symptoms PSA,Total (Free>4and<10) Today R97.20 - Elevated prostate specific antigen [PSA] CT abdomen pelvis wo IV con Today N20.0 - Calculus of kidney AMB Urinalysis Automated Today Z13.9 - Encounter for screening, unspecified Patient Instructions: The patient had an opportunity to ask questions regarding treatment plan. The patient expressed understanding and agreement with the above treatment plan. The patient is aware they should contact our office by phone for worsening of their current condition or the appearance of new symptoms. Compliance is encouraged with any medications and followup testing that is ordered. It is a privilege to be allowed the opportunity to participate in the urologic care of your patient. If you have any questions or concerns regarding treatment for the above conditions please do not hesitate to contact me. The office telephone contact is [phone]. This note is constructed in part using voice recognition software. While every effort has been made to ensure accuracy recreation therapist errors may have been included. Yours sincerely, Zulema Oliva MD Coding Level of Care Code Est Pt Level 4 (14905) Diagnoses BPH loc w urin obs/LUTS N40.1 Post-void dribbling N39.43 Kidney stone N20.0 Erectile dysfunction N52.9 Elevated PSA R97.20 CPT Codes Post Residual Void - PVR CPT Code: 50375-Xjcr Void Residual by ultrasound ([id number])
== END 2024-03-01 08:57 | disposition home or self-care (01) ==
PROVIDERS: PCP Nurse Practitioner Family; Visit Provider Urology
DX: N40.1 Benign prostatic hyperplasia with lower urinary tract symptoms (principal); N39.43 Post-void dribbling; N20.0 Calculus of kidney; N52.9 Male erectile dysfunction, unspecified; R97.20 Elevated prostate specific antigen [PSA]; Z13.9 Encounter for screening, unspecified
CPT/HCPCS: 99214

== ENCOUNTER → 2024-03-01 08:17 | Outpatient (BNVA) | payer BC, SELFPAY | PROVIDERS: PCP Nurse Practitioner Family; Visit Provider Urology | DX: N40.1 Benign prostatic hyperplasia with lower urinary tract symptoms (principal); N13.8 Other obstructive and reflux uropathy; N39.43 Post-void dribbling; N20.0 Calculus of kidney; N52.9 Male erectile dysfunction, unspecified; R97.20 Elevated prostate specific antigen [PSA] | CPT/HCPCS: 51798; 81003 ==

== ENCOUNTER 2024-03-12 08:08 | Outpatient (REF) | payer BC, SELFPAY ==
[2024-03-12 11:22] LABS: PSA,Total (Free>4and<10) 2.85 ng/mL (0.00-4.00)
== END 2024-03-12 08:09 | disposition home or self-care (01) ==
LOC: HO.HMGCLDS 08:08
PROVIDERS: PCP Nurse Practitioner Family; Visit Provider Urology
DX: R97.20 Elevated prostate specific antigen [PSA] (principal); Z12.5 Encounter for screening for malignant neoplasm of prostate
CPT/HCPCS: 36415; 84153

== ENCOUNTER 2024-03-25 15:28 | Outpatient (AMB) | payer BC, SELFPAY ==
--- NOTE | 2024-03-25 15:32 | MHC.OFFVIS ---
Intake Visit Reasons: 3w/PSA(PSA 2.85) Intake Note: Patient is Present for Telephone Follow Up Urology Med: Sildenafil Antibiotic Allergy: None Blood Thinner:None Macerator Operator Required: No Allergies No Known Allergies Allergy (Verified 03/25/24 15:35) HPI Comments Details: 03/25/24--Telehealth fu: Wan is followed Left nephrolithiasis, monitoring PSA, he states he is doing well. PSA 01/15/24 - 4.55 ng/mL; Discussed PSA results- 2.85 ng/mL Review of chart: 03/01/24--Wan is a 64-year-old male who presents today to the office for a follow-up. He is being followed due to BPH and changes in urinary stream he has currently not on alpha-berna. He had PSA done which came back 4.55. The patient also was noted to have a 5 mm kidney stone on prior renal ultrasound imaging. I have discussed that elevated PSA may indicate changes in the prostate including benign enlargement, cancer and an inflammatory condition. I have discussed doing a biopsy has risks and that management in early detection of prostate cancer may include active surveillance. Will get a CT abdomen pelvis without IV contrast to follow-up on nephrolithiasis. 07/02/2023-- LV 02/17/23-- He was prescribed alfuzosin. Wan is a 63-year-old male who is being followed for LUTS of dribbling and BPH. He states that he did not take alfusozin as he developed jaw pain and felt drowsy for couple of days. He uses generic Viagra 100 mg PRN. He has had renal US done which was reviewed with patient today noting a 5 mm stone on the left kidney. He states he would prefer not to take BPH medications at this time, as he feels he is emptying his bladder adequately. I have reviewed the US results from 02/25/2023 revealed. 5 mm in the lower pole of the left kidney. PSA results reviewed? 12/21/20-- 1.95, 01/30/22-- 2.15 01/29/23?2.33 [facility] Medical History Family history of Crohn's disease Psoriasis Hx of degenerative disc disease Elevated cholesterol Asthma Retinal hemorrhage of right eye Surgical History History of tonsillectomy and adenoidectomy History of esophagogastroduodenoscopy (EGD) H/O colonoscopy H/O left knee surgery Family History Father Crohn disease Mother No problems noted. Social History Housing: House Patient Tobacco Use Status: Never used Tobacco e-Cigarette/Vaping Use: Never Used service: No Current occupational status: retired Cognitive needs: No Hearing needs: No Vision needs: Yes Review of Systems Const All systems reviewed & are unremarkable except as noted in HPI and below Reports no additional complaints Eyes Reports no additional complaints ENT Reports no additional complaints Card Reports no additional complaints Resp Reports no additional complaints GI Reports no additional complaints Reports as per HPI Musc Reports no additional complaints Skin/Breast Reports system reviewed and no additional complaints, except as documented Neuro Reports no additional complaints Psych Reports no additional complaints Endo Reports no additional complaints Neo/Lymph Reports no additional complaints Aller/Immun Reports no additional complaints Telehealth Telehealth Telehealth Platform: Telephone Location of provider rendering services: practice address Location of patient: address on file Patient Identification confirmed using: Name, : Yes Telehealth method: voice only Patient verbally consented to treatment: Yes Patient verbally consented to billing insurance company: Yes Patient informed of any privacy concerns related to visit: Yes Minutes spent on Phone/Video with Pt.: 13 Results Reviewed Results Reviewed: Date of Service: 02/25/23 EXAMINATION: US RETROPERITONEAL COMPLETE (RENAL) CLINICAL INFORMATION: Postvoid dribbling. Please measure prostate. COMPARISON: None available. FINDINGS: RIGHT KIDNEY: 10.9 x 5.4 x 5.3 cm (SAG x AP x TRV). The kidney is normal in size, contour, and echogenicity. Renal cortical thickness is normal. No calculi or focal parenchymal lesions. No hydronephrosis. LEFT KIDNEY: 10.3 x 5.1 x 5.3 cm (SAG x AP x TRV). The kidney is normal in size, contour, and echogenicity. Renal cortical thickness is normal. No focal parenchymal lesions or hydronephrosis. 5 mm nonobstructing lower pole renal stone. Assessment & Plan Assessment & Plan (1) Elevated PSA: Code(s): R97.20 - Elevated prostate specific antigen [PSA] Category: Medical (2) BPH loc w urin obs/LUTS: Code(s): N40.1 - Benign prostatic hyperplasia with lower urinary tract symptoms Category: Medical Plan Follow-up in [address] stone protocol prior Orders: Orders PSA,Total (Free>4and<10) 03/25/24 R97.20 - Elevated prostate specific antigen [PSA] Patient Instructions: The patient had an opportunity to ask questions regarding treatment plan. The patient expressed understanding and agreement with the above treatment plan. The patient is aware they should contact our office by phone for worsening of their current condition or the appearance of new symptoms. Compliance is encouraged with any medications and followup testing that is ordered. It is a privilege to be allowed the opportunity to participate in the urologic care of your patient. If you have any questions or concerns regarding treatment for the above conditions please do not hesitate to contact me. The office telephone contact is [phone]. This note is constructed in part using voice recognition software. While every effort has been made to ensure accuracy engineer first assistant errors may have been included. Yours sincerely, Zulema Oliva MD Coding Level of Care Code Tele Est Pt Level 3 (16303) Diagnoses Elevated PSA R97.20 BPH loc w urin obs/LUTS N40.1
--- OUTSIDE RECORDS SUMMARY | 2024-03-25 15:35 | XMS_ITS | Patient Health Record ---
Author Organization [facility] Address [address] [place] [address] Care Team Providers Care Converter Supervisor Name Role Phone NITA BHATTI Primary Care Provider Thanh Christopher Jr Unavailable REASON FOR REFERRAL No Information MEDICATIONS Medication SIG (Take, Route, Frequency, Duration) Notes Start Date End Date Status Vitamin C Active Atorvastatin Calcium 10 MG Orally Active Vitamin E Active Vitamin D Active Ibuprofen 600 MG Orally PRN Act mike Co Q 10 Active IMMUNIZATIONS Vaccine Route Administration Date Status Comme nts Influenza Unknown 05/31/2020 Administered SOCIAL HISTORY Tobacco Use: Social History Observation Description Date Details (start date - stop date) Never Smoker NA - NA Sex Assigned At : Social History Observation Description Sex Assigned At Unknown Tobacco Use/Smoking Question Answer Notes Patient is a nonsmoker Alcohol Screen Question Answer Notes Did you have a drink contain ing alcohol in the past year? Yes How often did you have a dri nk containing alcohol in the past year? 2 to 4 times a month (2 points) How often did you have 6 or more drinks on one occasion in the past year? Never (0 point) Points 2 Interpretation Negative PROBLEMS Problem Type ICD Code Onset Dates Problem Status W/U Status Risk SNOMED Code Notes Problem Rectal bleeding (K62.5) Active confirmed 45140863 Problem Colon cancer screening (Z12.11) Active confirmed 578083689 PLAN OF TREATMENT No Information Insurance Providers Payer Name Payer Address Payer Phone Subscriber Number Group Number Insured Name Patient Relationship to Insured Coverage Start Date Coverage End Date [facility] [address] [place] [place] [phone] [id number] BHUPENDRA CALERO Self - patient is the insured MEDICAL (GENERAL) HISTORY Medical History History ICD Code hyperlipidemia disc disease Surgical History Surgery Date(Month/Year) knee surgery - left 1982 tonsillectomy and adenoidectomy
== END 2024-03-25 15:54 | disposition home or self-care (01) ==
LOC: HO.HUSH 15:28
PROVIDERS: PCP Nurse Practitioner Family; Visit Provider Urology
DX: R97.20 Elevated prostate specific antigen [PSA] (principal); N40.1 Benign prostatic hyperplasia with lower urinary tract symptoms
CPT/HCPCS: 99442

== ENCOUNTER → 2024-03-25 15:28 | Outpatient (BNVA) | payer BC, SELFPAY | PROVIDERS: PCP Nurse Practitioner Family; Visit Provider Urology ==

== ENCOUNTER 2024-07-19 11:20 | Outpatient (REF) | payer BC, SELFPAY | END 2024-07-19 11:21 | disposition home or self-care (01) | LOC: HO.HMGCX 11:20 | PROVIDERS: PCP Nurse Practitioner Family; Visit Provider Urology | DX: N20.0 Calculus of kidney (principal); N40.1 Benign prostatic hyperplasia with lower urinary tract symptoms | CPT/HCPCS: 76775 ==

== ENCOUNTER 2024-11-23 13:44 | Outpatient (REF) | payer BC, SELFPAY ==
--- OUTSIDE RECORDS SUMMARY | 2024-11-23 16:47 | XMS_ITS | Patient Health Record ---
Author Organization [facility] Address [address] [place] [address] Care Team Providers Care Container Washer Name Role Phone NITA BHATTI Primary Care Provider Thanh Christopher Jr Unavailable [phone] Reason For Referral No Information Medications Medication SIG (Take, Route, Frequency, Duration) Notes Start Date End Date Status Vitamin C Active Atorvastatin Calcium 10 MG Orally Active Vitamin E Active Vitamin D Active Ibuprofen 600 MG Orally PRN Act imke Co Q 10 Active Immunizations Vaccine Route Administration Date Status Comme nts Influenza Unknown 05/31/2020 Administered Social History Tobacco Use: Social History Observation Description Date Details (start date - stop date) Never Smoker NA - NA Tobacco Use/Smoking Question Answer Notes Patient is [...] Never (0 point) Points 2 Interpretation Negative Problems Problem Type SNOMED Code ICD Code Onset Dates Problem Status W/U Status Risk Notes Problem 450786377 Colon cancer screening (Z12.11) Active confirmed Problem 45717144 Rectal bleeding (K62.5) Active confirmed Plan Of Treatment No Information Insurance Providers Payer Name Payer Address Payer Phone Subscriber Number Group Number Insured Name Patient Relationship to Insured Coverage Start Date Coverage End Date [facility] [address] [place] [phone] [id number] BHUPENDRA CALERO Self - patient is the insured Medical (General) History Medical History History ICD Code hyperlipidemia disc disease Surgical History Surgery Date(Month/Year) knee surgery - left 1982 tonsillectomy and adenoidectomy
--- OUTSIDE RECORDS SUMMARY | 2024-11-23 16:47 | XMS_ITS | Data Portability ---
Author Organization [place] - [employer] [facility] Address [address] [place] [address] Care Team Providers Care Activities Manager Name Role Phone DESHAWN AWA Referring Provider [phone] Assessment No assessment recorded. Plan of Treatment Reminders Order Date Submit Date Provider Last Modified By Organization Details Last Modified Time Details Appointments None recorded. Lab None recorded. Referral None recorded. Procedures None recorded. Surgeries None recorded. Imaging None recorded. Medication Orders Medrol (Derian) 4 mg tablets in a dose pack 2023 [id number], [address] [place], [address], 07:40:26 Augmentin 875 mg-125 mg tablet 2023 [id number], [address] [place], [address], 07:40:26 benzonatate 200 mg capsule 2023 024 [id number], [address] [place], [address], 07:40:27 Patient TargetsNo targets recorded. Patient Instructions Encounter Date Encounter Id Patient Instructions Last Modified By Organization Details Last Modified Time 12/27/2023 [id number] bronchitis: care instructions [email or web address] Not available 12/27/2023 07:40:23 Patient is encouraged to follow-up with PCP for all primary care, and chronic disease management. Patient is also encouraged to contact primary care for initial directive for acute illness management, and utilize the walk-in clinic, when the PCP is not available. msoll Not available 12/27/2023 07:40:31 Patient understands instructions and will seek medical attention if symptoms worsen as directed. [email or web address] Not available 12/27/2023 07:40:39 Reason for Referral None Reported. Problems Name Problem SNOMED Code Status Onset Date Resolution Date Notes Provider Name and Address Organization Details Recorded Time Acute bronchitis 26353836 Active 024 Danielle Olguinkaycee, PATIENT PLACEMENT COORDINATOR [address] [facility] [address], [place], [address], [facility] Physician [facility], [facility] 07:39:32 Problem Notes None recorded. Medical Equipment None Reported. Allergies No known drug allergies Medications Name Sig Start Date Stop Date Status Note LastModified by Organization Details LastModified Time Augmentin 875 mg-125 mg tablet Take 1 tablet every 12 hours by oral route for 10 days. 2023 active Not Available Not Available Not Avai lable atorvastatin 10 mg tablet Take 1 tablet every day by oral route. active Not Available Not Available No t Available benzonatate 200 mg capsule Take 1 capsule 3 times a day by oral route. 2023 active Not Available Not Available Not Avai lable Medrol (Derian) 4 mg tablets in a dose pack Take 1 dose pk by oral route. 2023 active Not Available Not Available Not Avai lable Vitals Date Recorded Body weight Body mass index (BMI) Body height Body temperature Heart rate Respiratory rate Oxygen saturation Oxygen saturation in Arterial blood by Pulse oximetry Systolic blood pressure Diastolic blood pressure Provider Name and Address Organization Details Last Updated DateTime 4 19855.7 4 g 28.4 kg/m2 175.26 cm 97.4 [degF] 68 /min 14 /min 98 % 98 % 128 mm[Hg] 72 mm[Hg] Jade Devi [facility] Physician [facility], [facility] 07:32:10 Social History Question Answer Notes LastModified by Organizat ion Details LastModified Time Tobacco Smoking Status Never Smoker Jade Devi [facility] Physician [facility], [facility] 12/27/2023 07:32:57 Do You Have An Advance Directive? No Information not available 12/27/2023 What Is Your Level Of Alcohol Consumption? Occasional Information not available 12/27/2023 Is Blood Transfusion Acceptable In An Emergency? Yes Information not available 12/27/2023 What Is Your Level Of Caffeine Consumption? Occasional Information not available 12/27/2023 What Type Of Diet Are You Following? REGULAR Information not available 12/27/2023 What Is The Highest Grade Or Level Of School You Have Completed Or The Highest Degree You Have Received? [id number] Information not available 12/27/2023 What Is Your Relationship Status? Information not available 12/27/2023 Are You Sexually Active? Yes Information not available 12/27/2023 Do You Or Have You Ever Used Smokeless Tobacco? Never Used Smokeless Tobacco Information not available 12/27/2023 Sex: Male Functional Status Question Answer Note LastModified by Organization D etails LastModified Time What is your exercise level? Moderate Information not available 12/27/2023 Mental Status None recorded. Family History Relationship Description Onset Age of this Age Resolved Age Notes LastModified by Organization Details LastModified Time Brother Crohn's disease ecorrigan Not available 2023 07:32:28 Sister Crohn's disease ecorrigan Not available 2023 07:32:28 Father Crohn's disease ecorrigan Not available 2023 07:32:28 Medical History Condition Response High Cholesterol Y Past Encounters Encounter ID Performer Location Encounter Start Date Encounter Closed Date Diagnosis/Indication Diagnosis SNOMED-CT Code Diagnosis ICD10 Code Diagnosis Note [id number] MORGAN Darby [facility] [address] [place] [address] 12/27/2023 07:13:13 12/27/2023 13:27:39 Acute bronchitis 91009093 J20.9 acute, progressin g, initial visitNewly undiagnose d problem with uncertain prognosis- requires further diagnostic workupRest Increase fluids- expected course of illness- see patient instructio ns - reviewed medication s and side effects in detail - Follow up with pcp in 3 days, To ED if worse or new symptoms Health Concerns Section Related Observation LastModified by Organization Detai ls LastModified Time None Recorded Concern Status LastModified by Organization Details LastModified Time None Recorded Advance Directives Directive N: Payers Encounter Date Sequence Insurance Name Policy Number Policy Sharma Covered Member ID Sharma Member ID Guarantor Name 12/27/2023 1 [facility] Wan Juarez [id number] Magdacecily Juarez Larry Notes Date Note Type Note Provider Name and Address Organization Details Recorded Time 12/27/2023 text/html Express Covid Questions ?Are you feeling sick today? Includes any NEW symptom(s) among those listed previously that are NOT due to another health problem ?Yes ?Have you tested positive for COVID-19 in the past 10 days?No ?In the last 10 days, have you been exposed to someone who has tested positive for COVID-19?No Imported from [email or web address] on 12/27/2023atient presents for new onset cough. Symptoms began several days ago, and are unchanged since that time. The cough is harsh and is aggravated by deep breathing. Patient denies other significant complaints. Patient does not have a history of asthma. Patient does not have a history of GERD. Patient does not have a history of environmental allergies. Patient does not have a history of smoking. Patient has not tried any treatments. Danielle Sharp, PATIENT PLACEMENT COORDINATOR [address], [place], [address], [facility] - [facility], [facility] 12/27/2023 07:45:01
[2024-11-23 16:48] LABS: PSA,Total (Free>4and<10) 3.55 ng/mL (0.00-4.00)
== END 2024-11-23 13:45 | disposition home or self-care (01) ==
LOC: HO.HMGCLDS 13:44
PROVIDERS: PCP Nurse Practitioner Family; Visit Provider Urology
DX: R97.20 Elevated prostate specific antigen [PSA] (principal); Z12.5 Encounter for screening for malignant neoplasm of prostate
CPT/HCPCS: 36415; 84153

== ENCOUNTER 2024-11-29 08:36 | Outpatient (AMB) | payer BC, SELFPAY ==
--- NOTE | 2024-11-29 08:40 | MHC.OFFVIS ---
Intake Visit Reasons: 7m followup/US Intake Note: Patient is Present for a 7 month follow up/US Urology Med: Sildenafil Antibiotic Allergy: None Blood Thinner:None PVR: 19ml Consultant In Ergonomics And Safety Required: No Allergies No Known Allergies Allergy (Verified 11/29/24 08:50) Medication List - Last Reconciled 11/29/24 by Zulema Oliva MD albuterol sulfate 90 mcg/actuation (Ventolin HFA) 1 inh inhalation QID PRN 30 days alclometasone 0.05% appl topical atorvastatin 10 mg PO BEDTIME ibuprofen 600 mg PO TID PRN ketoconazole 2% 1 appl topical 2XW sildenafil 100 mg PO DAILY PRN 30 days HPI Comments Details: 11/29/24--Wan is a 64-year-old male who presents today to the office for a follow-up. The patient is a 64-year-old male presenting with concerns related to PSA monitoring and kidney stone management. Initially noted PSA elevation on 01/15/2024 was 4.55 ng/mL, reduced to 3.55 ng/mL by 11/23/2024, remaining at the higher spectrum of the normal range. The patient is asymptomatic with respect to voiding, with bladder scan showing a post-void residual of 19 mL and urinalysis negative for any bladder infection. Regarding nephrolithiasis, a July 2024 ultrasound identified a left kidney stone, though the patient reports no related symptoms or notable discomfort. Previous attempt for CT imaging was unapproved by insurance, necessitating continued monitoring. The patient received dietary guidance focusing on hydration and reducing stone-inducing dietary factors like oxalate and sodium. Urinary Symptoms Review - No voiding difficulty reported - No incontinence or nocturnal issues mentioned Results - Labs: PSA 01/15/2024:4.55 ng/mL; PSA 11/23/2024:3.55 ng/mL - Tests and Diagnostics: Bladder scan PVR: 19 mL; Urinalysis: negative for leukocytes; Ultrasound July 2024: Identified left kidney stone 03/25/24--Telehealth fu: Wan is followed Left nephrolithiasis, monitoring PSA, he states he is doing well. PSA 01/15/24 - 4.55 ng/mL; Discussed PSA results- 2.85 ng/mL 03/01/24--Wan is a 64-year-old male who presents today to the office for a follow-up. He is being followed due to BPH and changes in urinary stream he has currently not on alpha-berna. He had PSA done which came back 4.55. The patient also was noted to have a 5 mm kidney stone on prior renal ultrasound imaging. I have discussed that elevated PSA may indicate changes in the prostate including benign enlargement, cancer and an inflammatory condition. I have discussed doing a biopsy has risks and that management in early detection of prostate cancer may include active surveillance. Will get a CT abdomen pelvis without IV contrast to follow-up on nephrolithiasis. 07/02/2023-- LV 02/17/23-- He was prescribed alfuzosin. Wan is a 63-year-old male who is being followed for LUTS of dribbling and BPH. He states that he did not take alfusozin as he developed jaw pain and felt drowsy for couple of days. He uses generic Viagra 100 mg PRN. He has had renal US done which was reviewed with patient today noting a 5 mm stone on the left kidney. He states he would prefer not to take BPH medications at this time, as he feels he is emptying his bladder adequately. I have reviewed the US results from 02/25/2023 revealed. 5 mm in the lower pole of the left kidney. PSA results reviewed? 12/21/20-- 1.95, 01/30/22-- 2.15 01/29/23?2.33 [facility] Medical History Family history of Crohn's disease Psoriasis Hx of degenerative disc disease Elevated cholesterol Asthma Retinal hemorrhage of right eye Surgical History History of tonsillectomy and adenoidectomy History of esophagogastroduodenoscopy (EGD) H/O colonoscopy H/O left knee surgery Family History Father Crohn disease Mother No problems noted. Social History Housing: House Patient Tobacco Use Status: Never used Tobacco e-Cigarette/Vaping Use: Never Used service: No Current occupational status: retired Cognitive needs: No Hearing needs: No Vision needs: Yes Review of Systems Const All systems reviewed & are unremarkable except as noted in HPI and below Reports no additional complaints Eyes Reports no additional complaints ENT Reports no additional complaints Card Reports no additional complaints Resp Reports no additional complaints GI Reports no additional complaints Reports as per HPI Musc Reports no additional complaints Skin/Breast Reports system reviewed and no additional complaints, except as documented Neuro Reports no additional complaints Psych Reports no additional complaints Endo Reports no additional complaints Neo/Lymph Reports no additional complaints Aller/Immun Reports no additional complaints Results Reviewed Results Reviewed: Date of Service: 07/19/24 US RETROPERITONEAL LIMITED (RENAL ONLY) CLINICAL INFORMATION: Calculus of kidney. COMPARISON: Ultrasound kidneys and bladder 02/25/2023. TECHNIQUE: Real-time imaging of the kidneys. Limited visualization due to bowel gas. FINDINGS: RIGHT KIDNEY: 10.2 x 5.4 x 5.8 cm (SAG x AP x TRV). No hydronephrosis. No renal calculi. Renal cortical thickness is normal. Limited visualization. LEFT KIDNEY: 10.1 x 6.1 x 4.9 cm (SAG x AP x TRV). LEFT renal 0.6 cm lower pole calculus. No hydronephrosis. Renal cortical thickness is normal. Limited visualization. IMPRESSION: LEFT renal 0.6 cm lower pole calculus. No hydronephrosis. Date of Service: 02/25/23 EXAMINATION: US RETROPERITONEAL COMPLETE (RENAL) CLINICAL INFORMATION: Postvoid dribbling. Please measure prostate. COMPARISON: None available. FINDINGS: RIGHT KIDNEY: 10.9 x 5.4 x 5.3 cm (SAG x AP x TRV). The kidney is normal in size, contour, and echogenicity. Renal cortical thickness is normal. No calculi or focal parenchymal lesions. No hydronephrosis. LEFT KIDNEY: 10.3 x 5.1 x 5.3 cm (SAG x AP x TRV). The kidney is normal in size, contour, and echogenicity. Renal cortical thickness is normal. No focal parenchymal lesions or hydronephrosis. 5 mm nonobstructing lower pole renal stone. Assessment & Plan Assessment & Plan (1) Kidney stone: Code(s): N20.0 - Calculus of kidney Category: Medical (2) Kidney stone on left side: Code(s): N20.0 - Calculus of kidney Category: Medical (3) Screening PSA (prostate specific antigen): Code(s): Z12.5 - Encounter for screening for malignant neoplasm of prostate Category: Medical (4) Elevated PSA: Code(s): R97.20 - Elevated prostate specific antigen [PSA] Category: Medical Plan Plan The patient will continue monitoring PSA levels, with follow-up blood work scheduled in six months to track any changes. A repeat ultrasound will be performed to reassess the kidney stone, accompanied by dietary modifications to prevent stone aggravation. If the kidney stone size increases, we will discuss potential procedural options. - Monitor fluid intake to achieve 48 to 64 ounces daily, prioritizing water consumption. - Incorporate lemon juice or low-sugar lemonade to increase citrate intake. - Avoid high-sodium foods and monitor dietary oxalate, especially from green leafy vegetables, berries, and nuts. Orders: Orders XR KUB 5 Months N20.0 - Calculus of kidney US renal BI 5 Months N20.0 - Calculus of kidney PSA,Total (Free>4and<10) Today R97.20 - Elevated prostate specific antigen [PSA], Z12.5 - Encounter for screening for malignant neoplasm of prostate Patient Instructions: The patient had an opportunity to ask questions regarding treatment plan. The patient expressed understanding and agreement with the above treatment plan. The patient is aware they should contact our office by phone for worsening of their current condition or the appearance of new symptoms. Compliance is encouraged with any medications and followup testing that is ordered. It is a privilege to be allowed the opportunity to participate in the urologic care of your patient. If you have any questions or concerns regarding treatment for the above conditions please do not hesitate to contact me. The office telephone contact is [phone]. This note is constructed in part using voice recognition software. While every effort has been made to ensure accuracy regrinder errors may have been included. Yours sincerely, Zulema Oliva MD Scribe Plan - Not visible on output: Patient was informed and verbally consented to the use of an ambient scribe for clinic note documentation during this visit. Coding Level of Care Code Est Pt Level 4 (49211) Complex EM visit Add On G2211 Diagnoses Kidney stone N20.0 Kidney stone on left side N20.0 Screening PSA (prostate specific antigen) Z12.5 Elevated PSA R97.20
--- OUTSIDE RECORDS SUMMARY | 2024-11-29 09:07 | XMS_ITS | Data Portability ---
Author Organization [place] - [employer] [facility] Address [address] [place] [address] Care Team Providers Care Hatch Tender Name Role Phone DESHAWN AWA Referring Provider [phone] Assessment No assessment recorded. Plan of Treatment Reminders Order Date Submit Date Provider Last Modified By Organization Details Last Modified Time Details Appointments None recorded. Lab None recorded. Referral None recorded. Procedures None recorded. Surgeries None recorded. Imaging None recorded. Medication Orders Medrol (Derian) 4 mg tablets in a dose pack 2023 [id number], [address] [place], [address], 07:40:26 Augmentin 875 mg-[address] [id number], [address] [place], [address], 07:40:26 benzonatate 200 mg capsule [address] [id number], [address] [place], [address], 07:40:27 Patient TargetsNo targets recorded. Patient Instructions Encounter Date Encounter Id Patient Instructions Last Modified By Organization Details Last Modified Time 12/27/2023 [id number] bronchitis: care instructions [email or web address] Not available 12/27/2023 [...] Address Organization Details Recorded Time Acute bronchitis 20126059 Active 024 Danielle Olguinkaycee, METAL BURNISHER [address] [facility] [address], [place], [address], [facility] Physician [facility], [facility] 07:39:32 Problem Notes None recorded. Medical Equipment [...] Address Organization Details Last Updated DateTime 4 69992.7 4 g 28.4 kg/m2 175.26 cm 97.4 [degF] 68 /min 14 /min 98 % 98 % 128 mm[Hg] 72 mm[Hg] Jade Devi [facility] Physician [facility], [facility] 07:32:10 Social History Question Answer Notes LastModified by Organizat ion Details LastModified Time Tobacco Smoking Status Never Smoker Jade Devi [facility] Physician [facility], [facility] 12/27/2023 07:32:57 Do You Have An Advance [...] Or The Highest Degree You Have Received? [id number] Information not available 12/27/2023 What Is Your [...] SNOMED-CT Code Diagnosis ICD10 Code Diagnosis Note [id number] MORGAN Darby [facility] [address] [place] [address] 12/27/2023 07:13:13 12/27/2023 13:27:39 Acute bronchitis 77360138 J20.9 acute, progressin g, initial visitNewly undiagnose [...] Sharma Member ID Guarantor Name 12/27/2023 1 [facility] Wan Juarez [id number] Magdacecily Juarez Larry Notes Date Note Type [...] has tested positive for COVID-19?No Imported from [employer] on 12/27/2023atient presents for new onset cough. [...] has not tried any treatments. Danielle Sharp, METAL BURNISHER [address], [place], [address], [facility] - [facility], [facility] 12/27/2023 07:45:01
--- OUTSIDE RECORDS SUMMARY | 2024-11-29 09:07 | XMS_ITS | Patient Health Record ---
Author Organization [facility] Address [address] [place] [address] Care Team Providers Care Retail Loan Officer Name Role Phone NITA BHATTI Primary Care Provider Thanh Christopher Jr Unavailable Reason For Referral No Information Medications Medication SIG (Take, Route, Frequency, Duration) Notes Start Date End Date Status Vitamin C Active Atorvastatin Calcium 10 MG Orally Active Vitamin E Active Vitamin D Active Ibuprofen 600 MG Orally PRN Act mike Co Q 10 Active Immunizations Vaccine Route [...] Problem Status W/U Status Risk Notes Problem [id number] Colon cancer screening (Z12.11) Active confirmed Problem [id number] Rectal bleeding (K62.5) Active confirmed Plan Of Treatment No Information Insurance Providers Payer Name Payer Address Payer Phone Subscriber Number Group Number Insured Name Patient Relationship to Insured Coverage Start Date Coverage End Date [facility] [address] [place] [address] [id number] BHUPENDRA CALERO Self - patient is the insured Medical (General) History Medical History History ICD Code hyperlipidemia disc disease Surgical History Surgery Date(Month/Year) knee surgery - left 1982 tonsillectomy and adenoidectomy
== END 2024-11-29 09:16 | disposition home or self-care (01) ==
LOC: HO.HUSH 08:37
PROVIDERS: PCP Nurse Practitioner Family; Visit Provider Urology
DX: N20.0 Calculus of kidney (principal); Z12.5 Encounter for screening for malignant neoplasm of prostate; R97.20 Elevated prostate specific antigen [PSA]; Z13.9 Encounter for screening, unspecified
CPT/HCPCS: 99214

== ENCOUNTER → 2024-11-29 08:36 | Outpatient (BNVA) | payer BC, SELFPAY | PROVIDERS: PCP Nurse Practitioner Family; Visit Provider Urology | DX: N20.0 Calculus of kidney (principal); Z12.5 Encounter for screening for malignant neoplasm of prostate; R97.20 Elevated prostate specific antigen [PSA] | CPT/HCPCS: 51798; 81003 ==

== ENCOUNTER 2025-01-18 07:37 | Outpatient (REF) | payer BC, SELFPAY ==
--- NOTE | ~2025-01-18 | XR_ITS ---
EXAMINATION: XR KNEE 1-2 VIEWS RIGHT HISTORY: M25.561 - Pain in right knee COMPARISON: There are no prior studies available for comparison. FINDINGS: AP and lateral views of the right knee are submitted. Osseous mineralization is normal. There is no fracture or dislocation. There is mild narrowing of the medial compartment. The soft tissues are unremarkable. There is no joint effusion. XR/XR knee RT 2V IMPRESSION: Mild narrowing of the medial compartment. Electronically signed by: Jaden Salazar MD 01/18/2025 09:04 AM EDT
[2025-01-18 10:20] LABS: MANUAL DIFF FLAG NO
[2025-01-18 10:44] LABS: Appearance Urine Clear; Color Urine Yellow; Glucose Urine UA Negative (Negative); Leukocyte Esterase Urine Negative (Negative); Nitrite Urine Negative (Negative); PH 5.5 (5.0-9.0); Urine Blood Negative (Negative); Urine Ketones Negative (Negative); Urine Protein Negative (Neg-Trace)
[2025-01-18 10:46] LABS: Basophils Percent Auto 0.5 % (0-2); Eosinophils Absolute Auto 0.1 X10*3/uL (0.0-0.4); Eosinophils Percent Auto 1.5 % (0-4); Hematocrit 46.8 % (42.0-52.0); Hemoglobin 15.6 g/dl (14.0-18.0); Imm Gran Abs Auto 0.02 X10*3/uL (0.00-0.03); Imm Gran Pct Auto 0.3 % (0.0-0.4); Lymphocytes Absolute Auto 2.1 X10*3/uL (1.2-4.9); Lymphocytes Percent Auto 34.5 % (20-40); Mean Corpuscular HGB Conc 33.3 g/dl (31.0-36.0); Mean Corpuscular Hemoglobin 29.7 pg (27.0-33.0); Monocytes Absolute Auto 0.6 X10*3/uL (0.1-1.2); Monocytes Percent Auto 10.1 % (2-11); Neutrophils Absolute Auto 3.3 x10*3/uL (2.0-8.3); Neutrophils Percent Auto 53.1 % (45-73); Platelet Count 350 X10*3/uL (160-400); Red Blood Count 5.26 X10*6/uL (4.60-5.80); Red Cell Distribution Width 12.6 % (11.0-16.0); White Blood Count 6.1 X10*3/uL (4.8-10.8)
[2025-01-18 11:39] LABS: Alanine Aminotransferase 37 U/L (0-40); Albumin Level 4.6 g/dL (3.5-5.0); Alkaline Phosphatase 51 U/L (39-117); Anion Gap 11 (12-20); Aspartate Amino Transferase 33 U/L (5-37); Bilirubin Total 0.8 mg/dL (0.0-1.0); Blood Urea Nitrogen 13 mg/dL (9-16); Calcium 9.4 mg/dL (8.4-10.2); Carbon Dioxide 27 mmol/L (22-29); Chloride 105 mmol/L (96-108); Cholesterol 139 mg/dL (<200); Estimated Glomerular Filt Rate > 60; Glucose Fasting 100 mg/dL (60-99); HDL Cholesterol 36 mg/dL (>40); LDL Cholesterol Calculated 86 mg/dL (<100); Potassium 4.4 mmol/L (3.3-5.1); Sodium 139 mmol/L (135-145); TSH reflex Free T4 1.46 uIU/mL (0.32-4.0); Total Protein 7.5 g/dL (6.5-8.0); Triglycerides 89 mg/dL (<150)
== END 2025-01-18 07:38 | disposition home or self-care (01) ==
LOC: HO.HMGCX 07:37
PROVIDERS: PCP Nurse Practitioner Family; Visit Provider Nurse Practitioner Family
DX: Z00.00 Encounter for general adult medical examination without abnormal findings (principal); M25.561 Pain in right knee
CPT/HCPCS: 36415; 73560; 80053; 80061; 81003; 84443; 85025; 96127

== ENCOUNTER 2025-01-18 07:37 | Outpatient (AMB) | payer BC, SELFPAY ==
--- OUTSIDE RECORDS SUMMARY | 2025-01-18 07:40 | XMS_ITS | Patient Health Record ---
Author Organization [facility] Address [address] [place] [address] Care Team Providers Care Restaurant Server Name Role Phone NITA BHATTI Primary Care [...] Problem Status W/U Status Risk Notes Problem [id number] Colon cancer screening (Z12.11) Active confirmed Problem [id number] Rectal bleeding (K62.5) Active confirmed Plan Of Treatment No Information Insurance Providers Payer Name Payer Address Payer Phone Subscriber Number Group Number Insured Name Patient Relationship to Insured Coverage Start Date Coverage End Date [facility] [address] [place] [phone] [id number] BHUPENDRA CALERO Self - patient is the insured Medical (General) History Medical History History ICD Code hyperlipidemia disc disease Surgical History Surgery Date(Month/Year) knee surgery - left 1982 tonsillectomy and adenoidectomy
--- NOTE | 2025-01-18 07:42 | A.OFFPC_ITS ---
Vital Signs 01/18/25 07:46 Height 5 ft 7 in Weight 193 lb BMI 30.2 BP 136/80 Blood Pressure Location Rt brachial Position Sitting Respiration 15 Pulse 62 Pulse Source Pulse Oximeter Temp 97.9 F Temp Source Oral Pulse Oximetry (%) 95 Oxygen Delivery Method Room Air Intake Visit Reasons: ANNUAL PE Intake Note: Pt is here today for his PE Allergies No Known Allergies Allergy (Verified 01/18/25 07:43) Medication List - Last Reconciled 01/18/25 by AGRY Cornelius- albuterol sulfate 90 mcg/actuation (Ventolin HFA) 1 inh inhalation QID PRN 30 days alclometasone 0.05% appl topical atorvastatin 10 mg PO BEDTIME ibuprofen 600 mg PO TID PRN ketoconazole 2% 1 appl topical 2XW sildenafil 100 mg PO DAILY PRN 30 days Tobacco use date assessed: 01/18/25 Dental Screening Dental Screen Date: 01/18/25 Did you have a dental visit in the last 12 months?: Yes Did you have a dental problem in the last 6 months where you did not have access to dental care?: No Was dental information given to patient?: Patient has dentist HPI ANNUAL PE HPI Details History of Present Illness The patient is a 64-year-old male presenting for a wellness visit with complaints of discomfort in the right knee. His symptoms include swelling, tenderness, and audible popping and clicking with movements, which suggest an underlying issue with mobility due to possible osteoarthritis. He has noted sig nificant crepitus during knee motions. He denies experiencing symptoms such as chest pain, shortness of breath, abdominal pain, or any psychological distress like suicidal or homicidal ideations. The patient regularly undergoes dermatological evaluations for skin health and visits a urologist for PSA monitoring, indicating proactive health management. The examination revealed negative Rolando's and Jaguar's tests, suggesting mechanical integrity of knee structures, but an X-ray is warranted to explore further the potential arthritis affecting the knee. Health Maintenance - Routine dermatological assessments for skin health. - Regular PSA monitoring by urology. Social History Review of Systems - Musculoskeletal: Reports right knee sw elling, tenderness, popping, clicking, and crepitus. - Cardiopulmonary: Denies chest pain, sh ortness of breath. - Gastrointestinal: Denies abdominal dirk n, blood in stool, constipation, diarrhea. - Psychological: Denies suicidal ideatio n, homicidal ideation. Physical Exam General: Cooperative, healthy appearing, comfortable, no acute distress and well developed Orientation: Patient oriented x3 Limitations: No limitations Head: Normal to inspection Ears: Hearing grossly normal bilaterally Nose: Normal external nose present Face and sinus: Normal facial exam Eyes: Appearance normal, both eyes and all related structures Neck: Normal visual inspection and Yes full ROM Respiratory: Normal respiratory effort and able to speak in complete sentences. Clear to auscultation bilaterally Cardiovascular: Regular rate and rhythm. Normal S1 and S2 GI: Normal to inspection. Soft to palpation and nontender Skin: No rashes or lesions noted Neuro: Patient oriented x3 Extremities: Swelling of the right knee with tenderness, popping, and clicking. Significant crepitus noted with extension and flexion of the right knee. Negative Rolando's and Jaguar's tests. Results Plan I will obtain an X-ray in conjunction with routine lab tests to evaluate the suspected osteoarthritis of the right knee. The X-ray will help confirm degenerative changes. I acknowledge the patient's adherence to regular dermatological and urological specialty appointments and encourage continued follow-up with his specialists for skin and prostate health, respectively. Discussion Notes We discussed the likely diagnosis of osteoarthritis of the right knee, including its potential inflammatory origin, and decided to obtain an X-ray for confirmation. I explained the benefits of early imaging to guide treatment, and risks such as radiation exposure, were deemed minimal. Regular dermatological and urological care was acknowledged, and I emphasized the importance of these ongoing evaluations. Follow-up will be contingent on the results of the X-ray and lab tests. Patient Instructions - Plan for an X-ray of the right knee as discussed. - Continue regular check-ups with your d ermatologist and urologist. - Monitor knee symptoms and seek care if pain worsens or does not improve. - Continue usual activities as tolerated , but avoid aggravating the knee. [facility] Medical History Family history of Crohn's disease Psoriasis Hx of degenerative disc disease Elevated cholesterol Asthma Retinal hemorrhage of right eye Surgical History History of tonsillectomy and adenoidectomy History of esophagogastroduodenoscopy (EGD) H/O colonoscopy H/O left knee surgery Family History (Reviewed 01/18/25 @ 08:[address] [facility] [place]) Father Crohn disease Mother No problems noted. Social History (Reviewed 01/18/25 @ 08:[address] [facility] [place]) Housing: House Patient Tobacco Use Status: Never used Tobacco e-Cigarette/Vaping Use: Never Used service: No Current occupational status: retired Cognitive needs: No Hearing needs: No Vision needs: Yes Questionnaire PHQ-9 Over the last 2 weeks, how often have you been bothered by any of the following problems? 1. Little interest or pleasure in doing things: not at all 2. Feeling down, depressed, or hopeless: not at all 3. Trouble falling or staying asleep, or sleeping too much: not at all 4. Feeling tired or having little energy: not at all 5. Poor appetite or overeating: not at all 6. Feeling bad about yourself - or that you are a failure or have let yourself or your family down: not at all 7. Trouble concentrating on things, such as reading the newspaper or watching television: not at all 8. Moving or speaking so slowly that other people could have noticed. Or the opposite - being so fidgety or restless that you have been moving around a lot more than usual: not at all 9. Thoughts that you would be better off or of hurting yourself in some way: not at all Total score: 0 Depression Screening Interpretation: Negative Depression Screening Done: Yes [id number] - PHQ-9 Billing: Yes Source: Developed by Drs. Jaden Beverly, Latha Fisher, You Babin and colleagues, with an educational ganga from [employer]. Thrive Questionnaire Date Thrive assessed: 01/11/25 I am a: Patient What is your living situation today?: I have a steady place to live Within the past 12 months, did the food you bought not last and you didn't have the money to get more?: Never true Within the past 12 months, did you worry whether your food would run out before you got money to buy more?: Never true Do you have trouble paying for medicines?: No Do you have trouble getting transportation to medical appointments?: No Do you have trouble paying your heating and electricity bill?: No Do you have trouble taking care of your child, family member or friend?: No Do you have trouble with day-to-day activities such as bathing, preparing meals, shopping, managing finances, etc.?: No Are you currently unemployed and looking for a job?: No Are you interested in more education?: No Please select the resources that you would like help with: None Currently or been in a relationship where the following occur: No concerns reported THRIVE Score: 0 AUDIT C Alcohol Use Questionnaire (AUDIT-C) 1. How often do you have a drink containing alcohol?: Never 3. How often do you have six or more drinks on one occasion?: Never Total Score: 0 JESSIE-7 AMB Questionnaire JESSIE-7 Date JESSIE - 7 assessed: 01/18/25 Feeling nervous, anxious, or on edge: 1 = Several days Not being able to stop or control worryin = Not at all Worrying too much about different things: 0 = Not at all Trouble relaxin = Not at all Being so restless that it is hard to sit still: 0 = Not at all Becoming easily annoyed or irritable: 0 = Not at all Feeling afraid as if something awful might happen: 0 = Not at all Total JESSIE-7 score (0-4 normal; 5-9 mild; 10-14 moderate; 15-21 severe): 1 Source: Developed by Drs. Jaden Beverly, Latha Fisher, You Babin and colleagues, with an educational ganga from [employer]. Physical exam (Primary Care) Vital Signs: Last Vital Signs Temp 97.9 F 01/18/25 07:46 Pulse 62 01/18/25 07:46 Resp 15 01/18/25 07:46 BP 136/80 01/18/25 07:46 Pulse Ox 95 01/18/25 07:46 Oxygen Delivery Method Room Air 01/18/25 07:46 BMI result Body Mass Index 30.2 Tobacco/Smoking Status: Tobacco use Status Tobacco use date assessed 01/18/25 01/18/25 07:45 Patient Tobacco Use Status Never used Tobacco 01/18/25 07:45 e-Cigarette/Vaping Use Never Used 01/18/25 07:45 PHQ-9: PHQ-9 Score PHQ-9: Total score 0 01/18/25 07:45 Depression Screening Interpretation: Negative Thrive Assessment: Date of Thrive Assessment Date Thrive assessed 01/11/25 01/18/25 07:45 Currently or been in a relationship where the following occur: No concerns reported Coding Level of Care Code Est Pt Prev Care 40-64y(79485) Diagnoses Physical exam Z00.00 Right knee pain M25.561 Additional Codes PHQ-9 - 72577 - PHQ-9 Billing: Yes ([id number]) Assessment & Plan Assessment & Plan (1) Physical exam: Code(s): Z00.00 - Encounter for general adult medical examination without abnormal findings Category: Medical (2) Right knee pain: Code(s): M25.561 - Pain in right knee Category: Medical Plan . Orders: Orders Complete Blood Count Auto Diff Today Z00.00 - Encounter for general adult medical examination without abnormal findings Comprehensive [place]. Panel Fast Today Z00.00 - Encounter for general adult medical examination without abnormal findings UA CC w/rflx Micro + Cult Today Z00.00 - Encounter for general adult medical examination without abnormal findings TSH reflex Free T4 Today Z00.00 - Encounter for general adult medical examination without abnormal findings Lipid Panel Today Z00.00 - Encounter for general adult medical examination without abnormal findings XR knee RT 2V Today M25.561 - Pain in right knee
[2025-01-18 07:46] VITALS: BP 136/80; PULSE 62; RESP 15; TEMP 36.6; O2SAT 95; BMI 30.2
== END 2025-01-18 08:12 | disposition home or self-care (01) ==
LOC: HO.HMCC 07:38
PROVIDERS: PCP Nurse Practitioner Family; Visit Provider Nurse Practitioner Family
DX: Z00.00 Encounter for general adult medical examination without abnormal findings (principal); M25.561 Pain in right knee

== ENCOUNTER → 2025-01-18 08:47 | Outpatient (BNV) | payer BC, SELFPAY | PROVIDERS: PCP Nurse Practitioner Family; Visit Provider Radiology Diagnostic Radiology | DX: M25.561 Pain in right knee (principal) | CPT/HCPCS: 73560 ==

== ENCOUNTER 2025-05-02 08:56 | Outpatient (REF) | payer BC, SELFPAY ==
--- NOTE | ~2025-05-02 | US_ITS ---
EXAMINATION: US KIDNEY BILATERAL HISTORY: N20.0 - Calculus of kidney TECHNIQUE: Real-time grayscale ultrasound imaging of the kidneys was performed and images were reviewed. COMPARISON: Comparison is made with the prior examination dated 07/19/2024. FINDINGS: Right kidney: The right kidney measures 9.4 x 5.1 x 5.2 cm. Renal parenchymal echotexture and thickness are normal. There are no masses. There are nonobstructing upper pole calculi measuring 2 x 3 x 2 mm and 3 x 3 x 3 mm. There is no hydronephrosis. Left Kidney: The left kidney measures 9.3 x 5.2 x 4.8 cm. Renal parenchymal echotexture and thickness are normal. There are no masses. There is a 4 x 3 x 4 mm nonobstructing calculus at the lower pole. There is no hydronephrosis. US/US renal BI IMPRESSION: Bilateral nephrolithiasis as described. Electronically signed by: Jaden Salazar MD 05/02/2025 09:26 AM EDT
--- OUTSIDE RECORDS SUMMARY | 2025-05-02 10:20 | XMS_ITS | Patient Health Record ---
Author Organization [facility] Address [address] [place] [address] Care Team Providers Care Predictive Maintenance Specialist Name Role Phone NITA BHATTI Primary Care [...] Problem Status W/U Status Risk Notes Problem [id number] Colon cancer screening (Z12.11) Active confirmed Problem [id number] Rectal bleeding (K62.5) Active confirmed Plan Of Treatment No Information Insurance Providers Payer Name Payer Address Payer Phone Subscriber Number Group Number Insured Name Patient Relationship to Insured Coverage Start Date Coverage End Date [facility] [address] [place] [address] [phone] [id number] BHUPENDRA CALERO Self - patient is the insured Medical (General) History Medical History History ICD Code hyperlipidemia disc disease Surgical History Surgery Date(Month/Year) knee surgery - left 1982 tonsillectomy and adenoidectomy
== END 2025-05-02 08:57 | disposition home or self-care (01) ==
LOC: HO.HMGCX 08:56
PROVIDERS: PCP Nurse Practitioner Family; Visit Provider Urology
DX: N20.0 Calculus of kidney (principal)
CPT/HCPCS: 76775

== ENCOUNTER → 2025-05-02 09:02 | Outpatient (BNV) | payer BC, SELFPAY | PROVIDERS: PCP Nurse Practitioner Family; Visit Provider Radiology Diagnostic Radiology | DX: N20.0 Calculus of kidney (principal) | CPT/HCPCS: 76775 ==

== ENCOUNTER 2025-05-23 08:05 | Outpatient (REF) | payer BC, SELFPAY ==
[2025-05-23 11:13] LABS: PSA,Total (Free>4and<10) 4.28 ng/mL (0.00-4.00)
[2025-05-25 13:38] LABS: Free Prostate Spec Ag 0.5 ng/mL; Percent Free Prostate Spec Ag 11 % (calc) (>25)
== END 2025-05-23 08:06 | disposition home or self-care (01) ==
LOC: HO.HMGCLDS 08:05
PROVIDERS: PCP Nurse Practitioner Family; Visit Provider Urology
DX: Z12.5 Encounter for screening for malignant neoplasm of prostate (principal); R97.20 Elevated prostate specific antigen [PSA]
CPT/HCPCS: 36415; 84153; 84154

== ENCOUNTER 2025-06-08 08:48 | Outpatient (AMB) | payer BC, SELFPAY ==
--- NOTE | 2025-06-08 08:48 | A.OFFVIS_ITS ---
Intake Visit Reasons: 6m/US/KUB/PSA Intake Note: Patient is present via telehealth for a 6m follow up/US/KUB/PSA * 05/02 Renal US * 05/23 Total PSA:4.28/Free PSA:0.5 Urology Med: Sildenafil Antibiotic Allergy: None Blood Thinner:None Cake Decorator Required: No Allergies No Known Allergies Allergy (Verified 06/08/25 08:48) Medication List - Last Reconciled 06/08/25 by Zulema Oliva MD albuterol sulfate 90 mcg/actuation (Ventolin HFA) 1 inh inhalation QID PRN 30 days alclometasone 0.05% appl topical atorvastatin 10 mg PO BEDTIME ibuprofen 600 mg PO TID PRN ketoconazole 2% 1 appl topical 2XW sildenafil 100 mg PO DAILY PRN 30 days HPI Comments Details: 06/08/2025 Wan is a 65-year-old male presents telehealth follow-up renal ultrasound and PSA screening. PSA 05/23/2025 was 4.28 ng/mL. Renal ultrasound 05/02/2025. The patient is followed for BPH with PSA monitoring and history of kidney stones. History of Present Illness The patient is a 65-year-old male presenting with follow-up on renal ultrasound and PSA screening. The patient has a history of Benign Prostatic Hyperplasia (BPH) and elevated Prostate-Specific Antigen (PSA) levels. The PSA level recorded on 05/23/25 was 4.28 ng/mL, which is above the normal limit of 4 ng/mL. A prostate biopsy was discussed as a necessary step to evaluate the elevated PSA levels further. The patient also has a history of kidney stones, with recent imaging showing small stones in both kidneys. A 24-hour urine collection was recommended to assess dietary factors contributing to stone formation. Results - PSA level on 05/23/25: 4.28 ng/mL - Renal ultrasound on 05/02/25: Small stones in both kidneys Plan 1. Benign Prostatic Hyperplasia (Bph) 2. Elevated PSA - Continue monitoring PSA levels. - prostate biopsy to evaluate elevated PSA levels. 3. History Of Kidney Stones - Perform 24-hour urine collection to assess dietary factors. - Encourage increased fluid intake to prevent stone formation. 11/29/24--Wan is a 64-year-old male who presents today to the office for a follow-up. The patient is a 64-year-old male presenting with concerns related to PSA monitoring and kidney stone management. Initially noted PSA elevation on 01/15/2024 was 4.55 ng/mL, reduced to 3.55 ng/mL by 11/23/2024, remaining at the higher spectrum of the normal range. The patient is asymptomatic with respect to voiding, with bladder scan showing a post-void residual of 19 mL and urinalysis negative for any bladder infection. Regarding nephrolithiasis, a July 2024 ultrasound identified a left kidney stone, though the patient reports no related symptoms or notable discomfort. Previous attempt for CT imaging was unapproved by insurance, necessitating continued monitoring. The patient received dietary guidance focusing on hydration and reducing stone-inducing dietary factors like oxalate and sodium. Urinary Symptoms Review - No voiding difficulty reported - No incontinence or nocturnal issues mentioned Results - Labs: PSA 01/15/2024:4.55 ng/mL; PSA 11/23/2024:3.55 ng/mL - Tests and Diagnostics: Bladder scan PVR: 19 mL; Urinalysis: negative for leukocytes; Ultrasound July 2024: Identified left kidney stone 03/25/24--Telehealth fu: Wan is followed Left nephrolithiasis, monitoring PSA, he states he is doing well. PSA 01/15/24 - 4.55 ng/mL; Discussed PSA results- 2.85 ng/mL 03/01/24--Wan is a 64-year-old male who presents today to the office for a follow-up. He is being followed due to BPH and changes in urinary stream he has currently not on alpha-berna. He had PSA done which came back 4.55. The patient also was noted to have a 5 mm kidney stone on prior renal ultrasound imaging. I have discussed that elevated PSA may indicate changes in the prostate including benign enlargement, cancer and an inflammatory condition. I have discussed doing a biopsy has risks and that management in early detection of prostate cancer may include active surveillance. Will get a CT abdomen pelvis without IV contrast to follow-up on nephrolithiasis. 07/02/2023-- LV 02/17/23-- He was prescribed alfuzosin. Wan is a 63-year-old male who is being followed for LUTS of dribbling and BPH. He states that he did not take alfusozin as he developed jaw pain and felt drowsy for couple of days. He uses generic Viagra 100 mg PRN. He has had renal US done which was reviewed with patient today noting a 5 mm stone on the left kidney. He states he would prefer not to take BPH medications at this time, as he feels he is emptying his bladder adequately. I have reviewed the US results from 02/25/2023 revealed. 5 mm in the lower pole of the left kidney. PSA results reviewed? 12/21/20-- 1.95, 01/30/22-- 2.15 01/29/23?2.33 [facility] Medical History Osteoarthritis of right knee Family history of Crohn's disease Psoriasis Hx of degenerative disc disease Elevated cholesterol Asthma Retinal hemorrhage of right eye Surgical History History of tonsillectomy and adenoidectomy History of esophagogastroduodenoscopy (EGD) H/O colonoscopy H/O left knee surgery Family History Father Crohn disease Mother No problems noted. Social History Housing: House Patient Tobacco Use Status: Never used Tobacco e-Cigarette/Vaping Use: Never Used service: No Current occupational status: retired Cognitive needs: No Hearing needs: No Vision needs: Yes Review of Systems Const All systems reviewed & are unremarkable except as noted in HPI and below Reports no additional complaints Eyes Reports no additional complaints ENT Reports no additional complaints Card Reports no additional complaints Resp Reports no additional complaints GI Reports no additional complaints Reports as per HPI Musc Reports no additional complaints Skin/Breast Reports system reviewed and no additional complaints, except as documented Neuro Reports no additional complaints Psych Reports no additional complaints Endo Reports no additional complaints Neo/Lymph Reports no additional complaints Aller/Immun Reports no additional complaints Telehealth Telehealth Telehealth Platform: [employer] Location of provider rendering services: practice address Location of patient: address on file Patient Identification confirmed using: Name, : Yes Telehealth method: video Patient verbally consented to treatment: Yes Patient verbally consented to billing insurance company: Yes Patient informed of any privacy concerns related to visit: Yes Results Reviewed Results Reviewed: Date of Service: 05/02/25 [id number] for years at [phone] year HISTORY: N20.0 - Calculus of kidney TECHNIQUE: Real-time grayscale ultrasound imaging of the kidneys was performed and images were reviewed. COMPARISON: Comparison is made with the prior examination dated 07/19/2024. FINDINGS: Right kidney: The right kidney measures 9.4 x 5.1 x 5.2 cm. Renal parenchymal echotexture and thickness are normal. There are no masses. There are nonobstructing upper pole calculi measuring 2 x 3 x 2 mm and 3 x 3 x 3 mm. There is no hydronephrosis. Left Kidney: The left kidney measures 9.3 x 5.2 x 4.8 cm. Renal parenchymal echotexture and thickness are normal. There are no masses. There is a 4 x 3 x 4 mm nonobstructing calculus at the lower pole. There is no hydronephrosis. IMPRESSION: Bilateral nephrolithiasis as described. Date of Service: 07/19/24 US RETROPERITONEAL LIMITED (RENAL ONLY) CLINICAL INFORMATION: Calculus of kidney. COMPARISON: Ultrasound kidneys and bladder 02/25/2023. TECHNIQUE: Real-time imaging of the kidneys. Limited visualization due to bowel gas. FINDINGS: RIGHT KIDNEY: 10.2 x 5.4 x 5.8 cm (SAG x AP x TRV). No hydronephrosis. No renal calculi. Renal cortical thickness is normal. Limited visualization. LEFT KIDNEY: 10.1 x 6.1 x 4.9 cm (SAG x AP x TRV). LEFT renal 0.6 cm lower pole calculus. No hydronephrosis. Renal cortical thickness is normal. Limited visualization. IMPRESSION: LEFT renal 0.6 cm lower pole calculus. No hydronephrosis. Date of Service: 02/25/23 EXAMINATION: US RETROPERITONEAL COMPLETE (RENAL) CLINICAL INFORMATION: Postvoid dribbling. Please measure prostate. COMPARISON: None available. FINDINGS: RIGHT KIDNEY: 10.9 x 5.4 x 5.3 cm (SAG x AP x TRV). The kidney is normal in size, contour, and echogenicity. Renal cortical thickness is normal. No calculi or focal parenchymal lesions. No hydronephrosis. LEFT KIDNEY: 10.3 x 5.1 x 5.3 cm (SAG x AP x TRV). The kidney is normal in size, contour, and echogenicity. Renal cortical thickness is normal. No focal parenchymal lesions or hydronephrosis. 5 mm nonobstructing lower pole renal stone. Assessment & Plan Assessment & Plan (1) Kidney stone: Code(s): N20.0 - Calculus of kidney Category: Medical (2) Elevated PSA: Code(s): R97.20 - Elevated prostate specific antigen [PSA] Category: Medical (3) BPH (benign prostatic hyperplasia): Code(s): N40.0 - Benign prostatic hyperplasia without lower urinary tract symptoms Category: Medical Plan Plan 1. Benign Prostatic Hyperplasia (Bph) 2. Elevated PSA - Continue monitoring PSA levels. - prostate biopsy to evaluate elevated PSA levels. 3. History Of Kidney Stones - Perform 24-hour urine collection to assess dietary factors. - Encourage increased fluid intake to prevent stone formation. Scribe Plan - Not visible on output: Patient was informed and verbally consented to the use of an ambient scribe for clinic note documentation during this visit. Coding Level of Care Code Tele Est Pt Level 4 (22815) Complex EM visit Add On G2211 Diagnoses Kidney stone N20.0 Elevated PSA R97.20 BPH (benign prostatic hyperplasia) N40.0
--- OUTSIDE RECORDS SUMMARY | 2025-06-08 09:23 | XMS_ITS | Patient Health Record ---
Author Organization [facility] Address [address] [place] [address] Care Team Providers Care Jail Keeper Name Role Phone NITA BHATTI Primary Care [...] Problem Status W/U Status Risk Notes Problem Colon cancer screening (823532366) Colon cancer screening (Z12.11) Active confirmed Problem Rectal bleeding (10474862) Rectal bleeding (K62.5) Active confirmed Plan Of Treatment No Information Insurance Providers Payer Name Payer Address Payer Phone Subscriber Number Group Number Insured Name Patient Relationship to Insured Coverage Start Date Coverage End Date [facility] [address] [place] [phone] [id number] BHUPENDRA CALERO Self - patient is the insured Medical (General) History Medical History History ICD Code hyperlipidemia disc disease Surgical History Surgery Date(Month/Year) knee surgery - left 1982 tonsillectomy and adenoidectomy
== END 2025-06-08 16:30 | disposition home or self-care (01) ==
LOC: HO.HUSH 08:48
PROVIDERS: PCP Nurse Practitioner Family; Visit Provider Urology
DX: N20.0 Calculus of kidney (principal); R97.20 Elevated prostate specific antigen [PSA]; N40.0 Benign prostatic hyperplasia without lower urinary tract symptoms
CPT/HCPCS: 99213